=== PATIENT | female | born 1955 | race Caucasian/White ===

== ENCOUNTER 2020-01-21 11:20 | Observation (INO) ==
[2020-01-21] MEDS ORDERED: Ipratropium/Albuterol Neb 3 ML IH ONE (11:34)
[2020-01-21] MEDS ORDERED: Dexamethasone 4 MG/ML VIAL IVP ONE (11:37)
[2020-01-21 11:52] LABS: Basophils # 0.1 K/mcL (0.0-0.2); Basophils % 0.7 %; Eosinophils # 1.5 K/mcL (0.0-0.6); Eosinophils % 11.2 %; Hematocrit 43.2 % (35.3-44.9); Hemoglobin 12.7 g/dL (11.5-15.4); Immature Granulocytes % 0.5 % (0-4); Lymphocytes # 3.8 K/mcL (0.6-4.6); Lymphocytes % 29.5 %; Mean Corpuscular HGB Conc 29.4 g/dL (31.6-35.5); Mean Platelet Volume 9.1 fL (9.4-12.4); Monocytes # 0.8 K/mcL (0.0-1.3); Monocytes % 6.1 %; Neutrophils # 6.8 K/mcL (1.6-8.9); Platelet Count 310 K/mcL (140-400); Red Blood Count 5.08 M/mcL (3.82-4.97); Red Cell Distribution Width 15.9 % (11.5-14.5)
[2020-01-21 12:15] LABS: BUN/Creatinine Ratio 13 (6-26); Blood Urea Nitrogen 10 mg/dL (8-23); Calcium 9.2 mg/dL (8.6-10.3); Carbon Dioxide 30 mEq/L (23-29); Chloride 100 mEq/L (98-107); Glucose 128 mg/dL (70-105); Osmolality,Calculated 285 (280-300); Potassium 3.9 mEq/L (3.5-5.1); Sodium 137 mEq/L (136-145); Troponin I < 0.03 ng/mL (< 0.04); eGFR For African Americans > 60 (> 60); eGFR For Non-African Americans > 60 (> 60)
[2020-01-21] MEDS ORDERED: cefTRIAXone 1,000 MG in Water for inj. (sterile) 10 ML IVP ONE (12:15)
[2020-01-21] MEDS ORDERED: Azithromycin 500 MG in D5% in Water 250 ML IVPB ONE (12:15)
[2020-01-21] MEDS ORDERED: Ipratropium/Albuterol Neb 3 ML IH PRN (14:06)
[2020-01-21] MEDS: Ipratropium/Albuterol Neb 3 ML IH SCH ×2 (15:15→22:49)
[2020-01-21] MEDS: MethylPREDNISolone 40 MG/ML VIAL IVP SCH ×2 (16:10→23:35)
[2020-01-21] MEDS: Insulin LISPRO 300 UNITS/3 ML VIAL SQ SCH ×2 (16:11→21:01)
[2020-01-21] MEDS: Metoprolol XL (24 HR) Succ 25 MG TAB.ER.24H PO SCH (16:11)
[2020-01-21] MEDS: *HR* Heparin 5,000 UNIT/ML VIAL SQ SCH (21:02)
[2020-01-22] MEDS: Ipratropium/Albuterol Neb 3 ML IH SCH ×4 (03:51→21:52)
[2020-01-22] MEDS: *HR* Heparin 5,000 UNIT/ML VIAL SQ SCH ×3 (05:03→20:22)
[2020-01-22 05:28] LABS: Basophils % 0.2 %; Eosinophils % 0.1 %; Hematocrit 41.7 % (35.3-44.9); Hemoglobin 12.4 g/dL (11.5-15.4); Immature Granulocytes % 1.4 % (0-4); Lymphocytes # 1.6 K/mcL (0.6-4.6); Lymphocytes % 10.7 %; Mean Corpuscular HGB Conc 29.7 g/dL (31.6-35.5); Mean Corpuscular Hemoglobin 25.3 pg (28.0-33.3); Mean Corpuscular Volume 84.9 fL (83.0-100.0); Mean Platelet Volume 9.5 fL (9.4-12.4); Monocytes # 0.1 K/mcL (0.0-1.3); Monocytes % 0.7 %; Neutrophils # 12.8 K/mcL (1.6-8.9); Platelet Count 315 K/mcL (140-400); Red Blood Count 4.91 M/mcL (3.82-4.97); Red Cell Distribution Width 15.9 % (11.5-14.5); Segmented Neutrophils % 86.9 %; White Blood Count 14.7 K/mcL (4.3-11.1)
[2020-01-22 05:45] LABS: BUN/Creatinine Ratio 19 (6-26); Blood Urea Nitrogen 18 mg/dL (8-23); Carbon Dioxide 26 mEq/L (23-29); Chloride 98 mEq/L (98-107); Glucose 317 mg/dL (70-105); Osmolality,Calculated 294 (280-300); Sodium 135 mEq/L (136-145); eGFR For African Americans > 60 (> 60); eGFR For Non-African Americans 58 (> 60)
[2020-01-22 06:26] LABS: Adenovirus Not Detected (Not Detect); Bordetella Pertussis Not Detected (Not Detect); Chlamydophila pneumoniae Not Detected (Not Detect); Coronavirus 229E Not Detected (Not Detect); Coronavirus HKU1 Not Detected (Not Detect); Coronavirus NL63 Not Detected (Not Detect); Coronavirus OC43 Not Detected (Not Detect); Human Metapneumovirus Not Detected (Not Detect); Human Rhinovirus/Enterovirus Not Detected (Not Detect); Influenza A Subtype 2009 H1 Not Detected (Not Detect); Influenza B Not Detected (Not Detect); Mycoplasma pneumoniae Not Detected (Not Detect); Parainfluenza Virus 1 Not Detected (Not Detect); Parainfluenza Virus 2 Not Detected (Not Detect); Parainfluenza Virus 3 Not Detected (Not Detect); Parainfluenza Virus 4 Not Detected (Not Detect); Respiratory Syncytial Virus Not Detected (Not Detect)
[2020-01-22] MEDS: Metoprolol XL (24 HR) Succ 25 MG TAB.ER.24H PO SCH (08:33)
[2020-01-22] MEDS: Insulin LISPRO 300 UNITS/3 ML VIAL SQ SCH ×4 (08:33→20:21)
[2020-01-22] MEDS: MethylPREDNISolone 40 MG/ML VIAL IVP SCH ×3 (08:34→23:57)
[2020-01-22] MEDS: lisinopriL 10 MG TABLET PO SCH (08:34)
[2020-01-22] MEDS: cefTRIAXone 1,000 MG in Water for inj. (sterile) 10 ML IVP SCH (08:34)
[2020-01-22] MEDS: Isosorbide MONOnitrate (24 HR) 60 MG TAB.ER.24H PO SCH (08:34)
[2020-01-22] MEDS: hydroCHLOROthiazide 25 MG TABLET PO SCH (08:34)
[2020-01-22] MEDS: Aspirin 325 MG TABLET PO SCH (08:34)
[2020-01-22] MEDS: Azithromycin 500 MG in D5% in Water 250 ML IVPB SCH (08:35)
[2020-01-22 11:20] LABS: Estimated Average Glucose 171 mg/dl
[2020-01-22] MEDS ORDERED: Methyl Salicylate/Menthol 57 APPL/57 GM TUBE TP PRN (18:05)
[2020-01-23] MEDS: Ipratropium/Albuterol Neb 3 ML IH SCH ×4 (04:09→22:05)
[2020-01-23] MEDS: *HR* Heparin 5,000 UNIT/ML VIAL SQ SCH ×3 (06:30→19:48)
[2020-01-23] MEDS: MethylPREDNISolone 40 MG/ML VIAL IVP SCH ×2 (08:56→17:17)
[2020-01-23] MEDS: Insulin LISPRO 300 UNITS/3 ML VIAL SQ SCH ×4 (08:56→19:48)
[2020-01-23] MEDS: Metoprolol XL (24 HR) Succ 25 MG TAB.ER.24H PO SCH (08:57)
[2020-01-23] MEDS: lisinopriL 10 MG TABLET PO SCH (08:57)
[2020-01-23] MEDS: hydroCHLOROthiazide 25 MG TABLET PO SCH (08:57)
[2020-01-23] MEDS: Isosorbide MONOnitrate (24 HR) 60 MG TAB.ER.24H PO SCH (08:57)
[2020-01-23] MEDS: cefTRIAXone 1,000 MG in Water for inj. (sterile) 10 ML IVP SCH (08:58)
[2020-01-23] MEDS: Azithromycin 500 MG in D5% in Water 250 ML IVPB SCH (08:58)
[2020-01-23] MEDS: Aspirin 325 MG TABLET PO SCH (08:58)
[2020-01-24] MEDS: MethylPREDNISolone 40 MG/ML VIAL IVP SCH ×2 (00:02→09:43)
[2020-01-24] MEDS: Ipratropium/Albuterol Neb 3 ML IH SCH ×3 (03:16→15:41)
[2020-01-24] MEDS: *HR* Heparin 5,000 UNIT/ML VIAL SQ SCH (06:18)
[2020-01-24] MEDS: Azithromycin 500 MG in D5% in Water 250 ML IVPB SCH (09:41)
[2020-01-24] MEDS: Aspirin 325 MG TABLET PO SCH (09:42)
[2020-01-24] MEDS: Insulin LISPRO 300 UNITS/3 ML VIAL SQ SCH ×2 (09:42→12:14)
[2020-01-24] MEDS: hydroCHLOROthiazide 25 MG TABLET PO SCH (09:42)
[2020-01-24] MEDS: cefTRIAXone 1,000 MG in Water for inj. (sterile) 10 ML IVP SCH (09:43)
[2020-01-24] MEDS: lisinopriL 10 MG TABLET PO SCH (09:43)
[2020-01-24] MEDS: Isosorbide MONOnitrate (24 HR) 60 MG TAB.ER.24H PO SCH (09:43)
[2020-01-24] MEDS: Metoprolol XL (24 HR) Succ 25 MG TAB.ER.24H PO SCH (09:43)
[2020-01-24 10:39] VITALS: BP 130/67
[2020-01-24] MEDS ORDERED: Insulin LISPRO 300 UNITS/3 ML VIAL SQ ONE (11:11)
== END 2020-01-24 16:12 | disposition home or self-care (01) ==
LOC: EMEROOARM 11:20 → 3BNU 11:20 → SUATTDRO 14:04 → 3BNU 15:01
PROVIDERS: ADMIT Internal Medicine; ATTEND Internal Medicine

== ENCOUNTER 2020-03-22 09:48 | Observation (INO) ==
[2020-03-22] MEDS ORDERED: Ipratropium/Albuterol Neb 3 ML IH ONE (10:28)
[2020-03-22] MEDS ORDERED: methylPREDNISolone 125 MG/2 ML VIAL IVP ONE (10:29)
[2020-03-22 10:36] LABS: Hematocrit 39.5 % (35.3-44.9); Hemoglobin 11.8 g/dL (11.5-15.4); Mean Corpuscular HGB Conc 29.9 g/dL (31.6-35.5); Mean Corpuscular Hemoglobin 24.9 pg (28.0-33.3); Mean Corpuscular Volume 83.5 fL (83.0-100.0); Mean Platelet Volume 9.4 fL (9.4-12.4); Platelet Count 311 K/mcL (140-400); Red Blood Count 4.73 M/mcL (3.82-4.97); Red Cell Distribution Width 17.3 % (11.5-14.5); White Blood Count 12.7 K/mcL (4.3-11.1)
[2020-03-22 10:54] LABS: Eosinophils # 1.5 K/mcL (0.0-0.6); Lymphocytes # 2.3 K/mcL (0.6-4.6); Neutrophils # 7.9 K/mcL (1.6-8.9)
[2020-03-22 10:55] LABS: Anisocytosis 1+ (Not Present); Platelet Estimate Normal (Normal)
[2020-03-22 10:58] LABS: BUN/Creatinine Ratio 9 (6-26); Blood Urea Nitrogen 7 mg/dL (8-23); Calcium 9.1 mg/dL (8.6-10.3); Carbon Dioxide 28 mEq/L (23-29); Chloride 97 mEq/L (98-107); Glucose 191 mg/dL (70-105); Osmolality,Calculated 283 (280-300); Sodium 135 mEq/L (136-145); Troponin I < 0.03 ng/mL (< 0.04); eGFR For African Americans > 60 (> 60); eGFR For Non-African Americans > 60 (> 60)
[2020-03-22] MEDS ORDERED: 0.9 % Sodium Chloride 1,000 ML IVC ONE (13:36)
[2020-03-22] MEDS ORDERED: cefTRIAXone 1,000 MG in Water for inj. (sterile) 10 ML IVP ONE (13:49)
[2020-03-22] MEDS ORDERED: Azithromycin 500 MG in 0.9 % Sodium Chloride 250 ML IVPB ONE (13:49)
[2020-03-22 14:20] LABS: Bilirubin,Urine Negative (Negative); Blood,Urine Negative (Negative); Clarity,Urine Clear (Clear); Color,Urine Yellow (Yellow); Glucose,Urine (UA) Normal (Normal); Ketones,Urine Negative (Negative); Leukocyte Esterase,Urine Negative (Negative); Nitrite,Urine Negative (Negative); Protein,Urine Negative (Neg-Trace); Specific Gravity,Urine 1.012 (1.010-1.025); Urobilinogen,Urine Normal (Normal)
[2020-03-22] MEDS ORDERED: Ondansetron 4 MG/2 ML VIAL IVP PRN (15:25)
[2020-03-22] MEDS ORDERED: Naloxone 0.4 MG/ML INJ IVP PRN (15:25)
[2020-03-22] MEDS ORDERED: *HR* Dextrose 50 % in Water (Syg) 50 ML SYRINGE IVP PRN (20:03)
[2020-03-22] MEDS ORDERED: Dextrose Gel 15 GM/37.5 ML TUBE PO PRN ×2 (20:03)
[2020-03-22] MEDS ORDERED: D5% in Water 1,000 ML IVC PRN (20:03)
[2020-03-22] MEDS: Insulin LISPRO 300 UNITS/3 ML VIAL SQ SCH (21:24)
[2020-03-22 21:47] LABS: ABG Base Excess 0 mEq/L (-2 to 3); ABG HCO3 26 mEq/L (21-27); ABG Oxygen Saturation 90 % (95-98); ABG PCO2 47 mmHg (35-45); ABG PH 7.36 pH Units (7.32-7.45); ABG PO2 61 mmHg (85-104); ABG TCO2 28 mEq/L (20-26)
[2020-03-22] MEDS: Ringers Solution, Lactated 1,000 ML IVC SCH (21:50)
[2020-03-22] MEDS: Levalbuterol 1 PUFF INHALER IH SCH (23:16)
[2020-03-23 00:55] LABS: Basophils % 0.2 %; Eosinophils % 0.1 %; Hematocrit 36.8 % (35.3-44.9); Hemoglobin 11.2 g/dL (11.5-15.4); Immature Granulocytes % 1.4 % (0-4); Lymphocytes # 1.5 K/mcL (0.6-4.6); Lymphocytes % 10.3 %; Mean Corpuscular HGB Conc 30.4 g/dL (31.6-35.5); Mean Corpuscular Hemoglobin 24.8 pg (28.0-33.3); Mean Corpuscular Volume 81.4 fL (83.0-100.0); Mean Platelet Volume 9.8 fL (9.4-12.4); Monocytes # 0.1 K/mcL (0.0-1.3); Neutrophils # 12.6 K/mcL (1.6-8.9); Platelet Count 301 K/mcL (140-400); Red Blood Count 4.52 M/mcL (3.82-4.97); Red Cell Distribution Width 17.2 % (11.5-14.5); White Blood Count 14.5 K/mcL (4.3-11.1)
[2020-03-23 00:59] LABS: Estimated Average Glucose 189 mg/dl
[2020-03-23 01:14] LABS: BUN/Creatinine Ratio 17 (6-26); Blood Urea Nitrogen 12 mg/dL (8-23); Calcium 8.7 mg/dL (8.6-10.3); Carbon Dioxide 25 mEq/L (23-29); Chloride 98 mEq/L (98-107); Glucose 280 mg/dL (70-105); Osmolality,Calculated 286 (280-300); Potassium 4.1 mEq/L (3.5-5.1); Sodium 133 mEq/L (136-145); eGFR For African Americans > 60 (> 60); eGFR For Non-African Americans > 60 (> 60)
[2020-03-23 01:27] LABS: Thyroid Stimulating Hormone 0.311 mcIU/mL (0.340-5.600)
[2020-03-23] MEDS: Acetaminophen 325 MG TABLET PO PRN (02:06)
[2020-03-23] MEDS: Levalbuterol 1 PUFF INHALER IH SCH ×6 (03:58→23:28)
[2020-03-23] MEDS: *HR* Enoxaparin 40 MG/0.4 ML SYRINGE SQ SCH (05:51)
[2020-03-23] MEDS ORDERED: cefTRIAXone 1,000 MG in 0.9 % Sodium Chloride Mini Bag 100 ML IVPB SCH (09:00)
[2020-03-23 09:16] LABS: ABG Base Excess 3 mEq/L (-2 to 3); ABG HCO3 29 mEq/L (21-27); ABG Oxygen Saturation 95 % (95-98); ABG PCO2 45 mmHg (35-45); ABG PH 7.41 pH Units (7.32-7.45); ABG PO2 75 mmHg (85-104); ABG TCO2 30 mEq/L (20-26)
[2020-03-23] MEDS: Insulin LISPRO 300 UNITS/3 ML VIAL SQ SCH ×4 (10:15→22:17)
[2020-03-23 10:51] LABS: Triiodothyronine (T3) Free 2.93 pg/mL (2.50-3.90)
[2020-03-23] MEDS ORDERED: Azithromycin 500 MG in 0.9 % Sodium Chloride 250 ML IVPB SCH (14:00)
[2020-03-23] MEDS ORDERED: cefTRIAXone 1,000 MG in 0.9 % Sodium Chloride Mini Bag 100 ML IVPB ONE (14:35)
[2020-03-23] MEDS ORDERED: Vancomycin 1,750 MG/517.5 ML IV.SOLN IVPB ONE (14:53)
[2020-03-23] MEDS: Chlorhexidine Rinse 15 ML MOUTHWASH MM SCH (21:15)
[2020-03-23] MEDS: Ringers Solution, Lactated 1,000 ML IVC SCH (21:15)
[2020-03-23] MEDS: Lactobacillus 1 EACH CAP.SPRINK PO SCH (21:15)
[2020-03-24] MEDS: Vancomycin 1,500 MG/265 ML IV.SOLN IVPB SCH ×2 (03:37→15:01)
[2020-03-24] MEDS: Levalbuterol 1 PUFF INHALER IH SCH ×6 (04:05→23:41)
[2020-03-24 04:37] LABS: Basophils # 0.1 K/mcL (0.0-0.2); Basophils % 0.4 %; Eosinophils # 0.1 K/mcL (0.0-0.6); Eosinophils % 0.7 %; Hematocrit 35.7 % (35.3-44.9); Hemoglobin 10.6 g/dL (11.5-15.4); Immature Granulocytes % 0.9 % (0-4); Lymphocytes # 3.7 K/mcL (0.6-4.6); Lymphocytes % 21.8 %; Mean Corpuscular HGB Conc 29.7 g/dL (31.6-35.5); Mean Corpuscular Hemoglobin 24.8 pg (28.0-33.3); Mean Corpuscular Volume 83.6 fL (83.0-100.0); Mean Platelet Volume 9.7 fL (9.4-12.4); Monocytes % 6.1 %; Neutrophils # 12.1 K/mcL (1.6-8.9); Platelet Count 292 K/mcL (140-400); Red Blood Count 4.27 M/mcL (3.82-4.97); Red Cell Distribution Width 17.6 % (11.5-14.5); Segmented Neutrophils % 70.1 %; White Blood Count 17.2 K/mcL (4.3-11.1)
[2020-03-24 04:51] LABS: BUN/Creatinine Ratio 29 (6-26); Blood Urea Nitrogen 19 mg/dL (8-23); Calcium 8.5 mg/dL (8.6-10.3); Carbon Dioxide 26 mEq/L (23-29); Chloride 104 mEq/L (98-107); Glucose 141 mg/dL (70-105); Osmolality,Calculated 293 (280-300); Potassium 3.8 mEq/L (3.5-5.1); Sodium 139 mEq/L (136-145); eGFR For African Americans > 60 (> 60); eGFR For Non-African Americans > 60 (> 60)
[2020-03-24] MEDS ORDERED: Metoprolol XL (24 HR) Succ 25 MG TAB.ER.24H PO SCH (09:00)
[2020-03-24] MEDS: Ringers Solution, Lactated 1,000 ML IVC SCH (09:00)
[2020-03-24] MEDS ORDERED: lisinopriL 10 MG TABLET PO SCH (09:00)
[2020-03-24] MEDS ORDERED: cefTRIAXone 2,000 MG in 0.9 % Sodium Chloride Mini Bag 100 ML IVPB SCH (09:00)
[2020-03-24] MEDS: Loratadine 10 MG TABLET PO SCH (09:01)
[2020-03-24] MEDS: Nicotine 14 MG PATCH.TD24 TD SCH (09:01)
[2020-03-24] MEDS: *HR* Enoxaparin 40 MG/0.4 ML SYRINGE SQ SCH (09:01)
[2020-03-24] MEDS: Ascorbic Acid 500 MG TABLET PO SCH (09:01)
[2020-03-24] MEDS: Aspirin Enteric Coated 81 MG Tablet PO SCH (09:01)
[2020-03-24] MEDS: amLODIPine 5 MG TABLET PO SCH (09:01)
[2020-03-24] MEDS: Chlorhexidine Rinse 15 ML MOUTHWASH MM SCH ×2 (09:01→21:00)
[2020-03-24] MEDS: Metoprolol XL (24 HR) Succ 25 MG TAB.ER.24H PO SCH (09:01)
[2020-03-24] MEDS: Lactobacillus 1 EACH CAP.SPRINK PO SCH ×2 (09:01→21:00)
[2020-03-24] MEDS: Isosorbide MONOnitrate (24 HR) 60 MG TAB.ER.24H PO SCH (09:01)
[2020-03-24] MEDS: Insulin LISPRO 300 UNITS/3 ML VIAL SQ SCH ×4 (09:02→20:59)
[2020-03-24] MEDS: Fluticasone Propionate Nasal 50 MCG/SPRAY BOTTLE NS SCH (09:02)
[2020-03-24] MEDS: Insulin DETEMIR 100 UNIT/ML X5UNITS SQ SCH (09:03)
[2020-03-24] MEDS: Piperacillin/Tazobactam 3.375 GM in 0.9 % Sodium Chloride Mini Bag 100 ML IVPB SCH ×3 (10:01→23:53)
[2020-03-24] MEDS: Acetaminophen 325 MG TABLET PO PRN (21:04)
[2020-03-25 02:22] LABS: Basophils # 0.1 K/mcL (0.0-0.2); Basophils % 0.5 %; Eosinophils # 0.8 K/mcL (0.0-0.6); Eosinophils % 7.6 %; Hematocrit 33.5 % (35.3-44.9); Immature Granulocytes % 0.7 % (0-4); Lymphocytes # 2.6 K/mcL (0.6-4.6); Lymphocytes % 23.5 %; Mean Corpuscular HGB Conc 29.9 g/dL (31.6-35.5); Mean Corpuscular Hemoglobin 24.9 pg (28.0-33.3); Mean Corpuscular Volume 83.5 fL (83.0-100.0); Mean Platelet Volume 9.6 fL (9.4-12.4); Monocytes # 0.7 K/mcL (0.0-1.3); Monocytes % 6.1 %; Neutrophils # 6.8 K/mcL (1.6-8.9); Platelet Count 249 K/mcL (140-400); Red Blood Count 4.01 M/mcL (3.82-4.97); Red Cell Distribution Width 17.7 % (11.5-14.5); Segmented Neutrophils % 61.6 %
[2020-03-25 02:32] LABS: BUN/Creatinine Ratio 23 (6-26); Blood Urea Nitrogen 16 mg/dL (8-23); Calcium 8.3 mg/dL (8.6-10.3); Carbon Dioxide 28 mEq/L (23-29); Chloride 107 mEq/L (98-107); Glucose 127 mg/dL (70-105); Osmolality,Calculated 293 (280-300); Sodium 140 mEq/L (136-145); eGFR For African Americans > 60 (> 60); eGFR For Non-African Americans > 60 (> 60)
[2020-03-25] MEDS: Levalbuterol 1 PUFF INHALER IH SCH ×3 (03:34→11:11)
[2020-03-25] MEDS: Vancomycin 1,500 MG/265 ML IV.SOLN IVPB SCH (04:10)
[2020-03-25] MEDS: *HR* Enoxaparin 40 MG/0.4 ML SYRINGE SQ SCH (06:02)
[2020-03-25] MEDS: Acetaminophen 325 MG TABLET PO PRN (06:03)
[2020-03-25 06:34] VITALS: BP 142/87
[2020-03-25] MEDS: Insulin LISPRO 300 UNITS/3 ML VIAL SQ SCH (07:56)
[2020-03-25] MEDS: Chlorhexidine Rinse 15 ML MOUTHWASH MM SCH (07:57)
[2020-03-25] MEDS: Fluticasone Propionate Nasal 50 MCG/SPRAY BOTTLE NS SCH (07:57)
[2020-03-25] MEDS: Isosorbide MONOnitrate (24 HR) 60 MG TAB.ER.24H PO SCH (07:58)
[2020-03-25] MEDS: Metoprolol XL (24 HR) Succ 25 MG TAB.ER.24H PO SCH (07:58)
[2020-03-25] MEDS: Nicotine 14 MG PATCH.TD24 TD SCH (07:58)
[2020-03-25] MEDS: Aspirin Enteric Coated 81 MG Tablet PO SCH (07:58)
[2020-03-25] MEDS: Ascorbic Acid 500 MG TABLET PO SCH (07:58)
[2020-03-25] MEDS: Lactobacillus 1 EACH CAP.SPRINK PO SCH (07:59)
[2020-03-25] MEDS: Loratadine 10 MG TABLET PO SCH (07:59)
[2020-03-25] MEDS: amLODIPine 5 MG TABLET PO SCH (07:59)
[2020-03-25] MEDS: Insulin DETEMIR 100 UNIT/ML X5UNITS SQ SCH (08:10)
== END 2020-03-25 11:49 | disposition home or self-care (01) ==
LOC: 2NENU 09:48 → EMEROOARM 09:48 → SUATTDRO 14:57 → 2NENU 16:19 → 3ANU 03-23 20:17
PROVIDERS: ADMIT Family Medicine; ATTEND Family Medicine

== ENCOUNTER 2020-06-06 17:01 | Observation (INO) ==
[2020-06-06 18:21] LABS: Basophils # 0.1 K/mcL (0.0-0.2); Basophils % 0.6 %; Eosinophils # 1.9 K/mcL (0.0-0.6); Hematocrit 36.6 % (35.3-44.9); Hemoglobin 10.6 g/dL (11.5-15.4); Immature Granulocytes % 0.4 % (0-4); Lymphocytes # 3.3 K/mcL (0.6-4.6); Lymphocytes % 23.2 %; Mean Corpuscular Hemoglobin 23.1 pg (28.0-33.3); Mean Corpuscular Volume 79.7 fL (83.0-100.0); Mean Platelet Volume 9.6 fL (9.4-12.4); Monocytes # 0.9 K/mcL (0.0-1.3); Monocytes % 6.3 %; Neutrophils # 8.1 K/mcL (1.6-8.9); Platelet Count 377 K/mcL (140-400); Red Blood Count 4.59 M/mcL (3.82-4.97); Red Cell Distribution Width 16.9 % (11.5-14.5); Segmented Neutrophils % 56.5 %; White Blood Count 14.3 K/mcL (4.3-11.1)
[2020-06-06 18:23] LABS: BUN/Creatinine Ratio 8 (6-26); Blood Urea Nitrogen 5 mg/dL (8-23); Carbon Dioxide 29 mEq/L (23-29); Chloride 97 mEq/L (98-107); Glucose 105 mg/dL (70-105); Osmolality,Calculated 282 (280-300); Potassium 3.3 mEq/L (3.5-5.1); Sodium 137 mEq/L (136-145); Troponin I < 0.03 ng/mL (< 0.04); eGFR For African Americans > 60 (> 60); eGFR For Non-African Americans > 60 (> 60)
[2020-06-06] MEDS ORDERED: Ipratropium/Albuterol Neb 3 ML IH ONE ×2 (18:43→19:33)
[2020-06-06] MEDS ORDERED: predniSONE 20 MG TABLET PO ONE (18:43)
[2020-06-06 20:12] LABS: Alanine Aminotransferase 13 Units/L (7-52); Albumin 4.1 g/dL (3.5-5.7); Albumin/Globulin Ratio 1.5 (1.1-2.2); Alkaline Phosphatase 72 Units/L (34-104); Aspartate Amino Transferase 20 Units/L (13-39); Bilirubin,Indirect 0.3 mg/dL (0.0-1.0); Bilirubin,Total 0.3 mg/dL (0.3-1.0); Globulin 2.8 g/dL (2.4-3.5); Magnesium 1.8 mg/dL (1.6-2.6); Phosphorous 3.1 mg/dL (2.7-4.5); Total Protein 6.9 g/dL (6.4-8.9)
[2020-06-06] MEDS ORDERED: *HR* Dextrose 50 % in Water (Vial) 50 ML VIAL IVP PRN (20:54)
[2020-06-06] MEDS ORDERED: Dextrose Gel 15 GM/37.5 ML TUBE PO PRN ×2 (20:54)
[2020-06-06] MEDS ORDERED: Naloxone 0.4 MG/ML INJ IVP PRN (20:54)
[2020-06-06] MEDS ORDERED: D5% in Water 1,000 ML IVC PRN (20:54)
[2020-06-06] MEDS ORDERED: Fluticasone Propionate Nasal 50 MCG/SPRAY BOTTLE NS PRN (21:04)
[2020-06-06] MEDS ORDERED: Nitroglycerin 0.4 MG TAB.SUBL SL PRN (21:04)
[2020-06-06] MEDS: Nicotine 21 MG PATCH.TD24 TD SCH (21:32)
[2020-06-06] MEDS: Acetaminophen 325 MG TABLET PO PRN (21:32)
[2020-06-06] MEDS: Gabapentin 100 MG CAPSULE PO SCH (21:33)
[2020-06-06] MEDS: Insulin LISPRO 300 UNITS/3 ML VIAL SQ SCH (21:33)
[2020-06-06] MEDS: Budesonide/Formoterol 160/4.5 1 PUFF INH IH SCH (22:20)
[2020-06-06] MEDS: MethylPREDNISolone 40 MG/ML VIAL IVP SCH (23:00)
[2020-06-06] MEDS: Azithromycin 500 MG in 0.9 % Sodium Chloride 250 ML IVPB SCH (23:00)
[2020-06-06] MEDS: Insulin DETEMIR 100 UNIT/ML X5UNITS SQ SCH (23:00)
[2020-06-06] MEDS: Ipratropium/Albuterol Neb 3 ML IH SCH (23:43)
[2020-06-06] MEDS ORDERED: Ondansetron ODT 4 MG TAB.RAPDIS SL ONE (23:58)
[2020-06-07 03:56] LABS: Basophils # 0.1 K/mcL (0.0-0.2); Basophils % 0.4 %; Hemoglobin 10.8 g/dL (11.5-15.4); Monocytes % 0.5 %; White Blood Count 13.3 K/mcL (4.3-11.1)
[2020-06-07 03:57] LABS: Eosinophils % 0.3 %; Hematocrit 37.1 % (35.3-44.9); Immature Granulocytes % 1.5 % (0-4); Lymphocytes # 1.3 K/mcL (0.6-4.6); Lymphocytes % 9.7 %; Mean Corpuscular HGB Conc 29.1 g/dL (31.6-35.5); Mean Corpuscular Hemoglobin 23.4 pg (28.0-33.3); Mean Corpuscular Volume 80.5 fL (83.0-100.0); Mean Platelet Volume 9.2 fL (9.4-12.4); Monocytes # 0.1 K/mcL (0.0-1.3); Neutrophils # 11.7 K/mcL (1.6-8.9); Platelet Count 324 K/mcL (140-400); Red Blood Count 4.61 M/mcL (3.82-4.97); Red Cell Distribution Width 16.7 % (11.5-14.5); Segmented Neutrophils % 87.6 %
[2020-06-07 04:15] LABS: BUN/Creatinine Ratio 11 (6-26); Blood Urea Nitrogen 8 mg/dL (8-23); Calcium 8.8 mg/dL (8.6-10.3); Carbon Dioxide 31 mEq/L (23-29); Chloride 97 mEq/L (98-107); Glucose 183 mg/dL (70-105); Osmolality,Calculated 285 (280-300); Potassium 4.4 mEq/L (3.5-5.1); Sodium 136 mEq/L (136-145); eGFR For African Americans > 60 (> 60); eGFR For Non-African Americans > 60 (> 60)
[2020-06-07 04:23] LABS: Anisocytosis 1+ (Not Present); Microcytosis Present (Not Present); Platelet Estimate Normal (Normal)
[2020-06-07] MEDS: Ipratropium/Albuterol Neb 3 ML IH SCH ×6 (04:27→23:21)
[2020-06-07] MEDS: *HR* Enoxaparin 40 MG/0.4 ML SYRINGE SQ SCH (05:36)
[2020-06-07] MEDS: Budesonide/Formoterol 160/4.5 1 PUFF INH IH SCH ×2 (07:53→19:58)
[2020-06-07] MEDS: Insulin LISPRO 300 UNITS/3 ML VIAL SQ SCH ×4 (07:57→21:05)
[2020-06-07] MEDS: MethylPREDNISolone 40 MG/ML VIAL IVP SCH ×2 (07:57→16:47)
[2020-06-07] MEDS: Metoprolol XL (24 HR) Succ 25 MG TAB.ER.24H PO SCH (07:58)
[2020-06-07] MEDS: Aspirin Enteric Coated 81 MG Tablet PO SCH (07:58)
[2020-06-07] MEDS: Isosorbide MONOnitrate (24 HR) 60 MG TAB.ER.24H PO SCH (07:58)
[2020-06-07] MEDS: Gabapentin 100 MG CAPSULE PO SCH ×3 (07:58→21:03)
[2020-06-07] MEDS: Loratadine 10 MG TABLET PO SCH (07:58)
[2020-06-07] MEDS: lisinopriL 10 MG TABLET PO SCH (07:59)
[2020-06-07] MEDS: Acetaminophen 325 MG TABLET PO PRN ×2 (08:01→21:08)
[2020-06-07] MEDS ORDERED: GuaiFENesin Liq 200 MG/10 ML UDC PO PRN (09:56)
[2020-06-07] MEDS: Menthol 9.1 MG LOZENGE PO PRN (12:51)
[2020-06-07] MEDS: Nicotine 21 MG PATCH.TD24 TD SCH (21:04)
[2020-06-07] MEDS: Insulin DETEMIR 100 UNIT/ML X5UNITS SQ SCH (21:05)
[2020-06-08] MEDS: Menthol 9.1 MG LOZENGE PO PRN (00:11)
[2020-06-08] MEDS: Azithromycin 500 MG in 0.9 % Sodium Chloride 250 ML IVPB SCH (00:42)
[2020-06-08] MEDS: Ipratropium/Albuterol Neb 3 ML IH SCH ×5 (03:46→19:47)
[2020-06-08] MEDS: *HR* Enoxaparin 40 MG/0.4 ML SYRINGE SQ SCH (05:26)
[2020-06-08] MEDS: Budesonide/Formoterol 160/4.5 1 PUFF INH IH SCH ×2 (07:44→19:47)
[2020-06-08] MEDS: Azithromycin 250 MG TABLET PO SCH (09:13)
[2020-06-08] MEDS: Loratadine 10 MG TABLET PO SCH (09:13)
[2020-06-08] MEDS: Gabapentin 100 MG CAPSULE PO SCH ×3 (09:13→20:37)
[2020-06-08] MEDS: lisinopriL 10 MG TABLET PO SCH (09:13)
[2020-06-08] MEDS: predniSONE 20 MG TABLET PO SCH (09:13)
[2020-06-08] MEDS: Aspirin Enteric Coated 81 MG Tablet PO SCH (09:13)
[2020-06-08] MEDS: Metoprolol XL (24 HR) Succ 25 MG TAB.ER.24H PO SCH (09:14)
[2020-06-08] MEDS: Isosorbide MONOnitrate (24 HR) 60 MG TAB.ER.24H PO SCH (09:14)
[2020-06-08] MEDS: Acetaminophen 325 MG TABLET PO PRN ×2 (09:17→20:39)
[2020-06-08] MEDS: Insulin LISPRO 300 UNITS/3 ML VIAL SQ SCH ×4 (09:18→20:39)
[2020-06-08] MEDS: Insulin DETEMIR 100 UNIT/ML X5UNITS SQ SCH (20:37)
[2020-06-08] MEDS: Nicotine 21 MG PATCH.TD24 TD SCH (20:37)
[2020-06-09] MEDS: Ipratropium/Albuterol Neb 3 ML IH SCH ×3 (00:01→07:24)
[2020-06-09 03:39] LABS: Hemoglobin 9.3 g/dL (11.5-15.4); Platelet Count 352 K/mcL (140-400)
[2020-06-09 03:40] LABS: Hematocrit 33.1 % (35.3-44.9); Mean Corpuscular HGB Conc 28.1 g/dL (31.6-35.5); Mean Corpuscular Hemoglobin 22.5 pg (28.0-33.3); Mean Platelet Volume 9.4 fL (9.4-12.4); Red Blood Count 4.14 M/mcL (3.82-4.97); Red Cell Distribution Width 16.9 % (11.5-14.5); White Blood Count 18.4 K/mcL (4.3-11.1)
[2020-06-09 03:59] LABS: BUN/Creatinine Ratio 32 (6-26); Blood Urea Nitrogen 23 mg/dL (8-23); Calcium 8.7 mg/dL (8.6-10.3); Carbon Dioxide 29 mEq/L (23-29); Chloride 100 mEq/L (98-107); Glucose 229 mg/dL (70-105); Osmolality,Calculated 295 (280-300); Sodium 137 mEq/L (136-145); eGFR For African Americans > 60 (> 60); eGFR For Non-African Americans > 60 (> 60)
[2020-06-09] MEDS: *HR* Enoxaparin 40 MG/0.4 ML SYRINGE SQ SCH (05:55)
[2020-06-09 06:32] VITALS: BP 112/69
[2020-06-09] MEDS: Budesonide/Formoterol 160/4.5 1 PUFF INH IH SCH (07:24)
[2020-06-09] MEDS: Loratadine 10 MG TABLET PO SCH (08:46)
[2020-06-09] MEDS: lisinopriL 10 MG TABLET PO SCH (08:46)
[2020-06-09] MEDS: Insulin LISPRO 300 UNITS/3 ML VIAL SQ SCH (08:46)
[2020-06-09] MEDS: Isosorbide MONOnitrate (24 HR) 60 MG TAB.ER.24H PO SCH (08:46)
[2020-06-09] MEDS: predniSONE 20 MG TABLET PO SCH (08:46)
[2020-06-09] MEDS: Aspirin Enteric Coated 81 MG Tablet PO SCH (08:46)
[2020-06-09] MEDS: Azithromycin 250 MG TABLET PO SCH (08:47)
[2020-06-09] MEDS: Gabapentin 100 MG CAPSULE PO SCH (08:47)
[2020-06-09] MEDS: Metoprolol XL (24 HR) Succ 25 MG TAB.ER.24H PO SCH (08:47)
== END 2020-06-09 10:43 | disposition home or self-care (01) ==
LOC: EMEROOARM 17:01 → 3BNU 17:01
PROVIDERS: ADMIT Internal Medicine; ATTEND Internal Medicine

== ENCOUNTER 2020-08-09 12:35 | Inpatient (IN) ==
[2020-08-09] MEDS ORDERED: 0.9 % Sodium Chloride 1,000 ML IVC ONE ×2 (12:57→14:11)
[2020-08-09] MEDS ORDERED: Ondansetron 4 MG/2 ML VIAL IVP ONE (12:57)
[2020-08-09] MEDS ORDERED: *HR* FentaNYL (PF) 100 MCG/2 ML VIAL IVP ONE (13:09)
[2020-08-09 13:31] LABS: Basophils % 0.3 %; Hemoglobin 13.4 g/dL (11.5-15.4); Mean Platelet Volume 9.5 fL (9.4-12.4); Monocytes % 3.9 %; Red Cell Distribution Width 18.6 % (11.5-14.5)
[2020-08-09 13:32] LABS: Basophils # 0.1 K/mcL (0.0-0.2); Eosinophils % 18.3 %; Hematocrit 45.4 % (35.3-44.9); Immature Granulocytes % 0.9 % (0-4); Lymphocytes % 14.6 %; Mean Corpuscular HGB Conc 29.5 g/dL (31.6-35.5); Mean Corpuscular Volume 74.7 fL (83.0-100.0); Monocytes # 1.1 K/mcL (0.0-1.3); Neutrophils # 16.9 K/mcL (1.6-8.9); Platelet Count 428 K/mcL (140-400); Red Blood Count 6.08 M/mcL (3.82-4.97); White Blood Count 27.3 K/mcL (4.3-11.1)
[2020-08-09 13:37] LABS: INR 1.3; Prothrombin Time 14.2 Seconds (9.4-12.1)
[2020-08-09 13:39] LABS: Activated Partial Thrombo Time 35.5 Seconds (26.0-36.0)
[2020-08-09 13:52] LABS: Alanine Aminotransferase 7 Units/L (7-52); Albumin 4.5 g/dL (3.5-5.7); Albumin/Globulin Ratio 1.4 (1.1-2.2); Alkaline Phosphatase 126 Units/L (34-104); Aspartate Amino Transferase 13 Units/L (13-39); BUN/Creatinine Ratio 13 (6-26); Bilirubin,Direct 0.1 mg/dL (0.0-0.2); Bilirubin,Indirect 0.2 mg/dL (0.0-1.0); Bilirubin,Total 0.3 mg/dL (0.3-1.0); Blood Urea Nitrogen 11 mg/dL (8-23); Calcium 9.8 mg/dL (8.6-10.3); Carbon Dioxide 26 mEq/L (23-29); Chloride 100 mEq/L (98-107); Globulin 3.2 g/dL (2.4-3.5); Glucose 142 mg/dL (70-105); Lipase 28 Units/L (11-82); Osmolality,Calculated 290 (280-300); Potassium 3.1 mEq/L (3.5-5.1); Sodium 139 mEq/L (136-145); Total Protein 7.7 g/dL (6.4-8.9); Troponin I < 0.03 ng/mL (< 0.04); eGFR For African Americans > 60 (> 60); eGFR For Non-African Americans > 60 (> 60)
[2020-08-09 13:57] LABS: Platelet Estimate Normal (Normal)
[2020-08-09] MEDS ORDERED: Piperacillin/Tazobactam 3.375 GM in Water for inj. (sterile) 20 ML IVP ONE (14:45)
[2020-08-09 15:11] LABS: Bilirubin,Urine Negative (Negative); Blood,Urine Negative (Negative); Clarity,Urine Clear (Clear); Color,Urine Yellow (Yellow); Glucose,Urine (UA) Normal (Normal); Hyaline Casts,Urine Few per lpf (None Seen); Ketones,Urine Negative (Negative); Leukocyte Esterase,Urine Negative (Negative); Mucus,Urine Many per lpf (None-Few); Nitrite,Urine Negative (Negative); PH,Urine 5.5 pH Units (5.0-8.0); Protein,Urine 50 mg/dL (Neg-Trace); RBC,Urine 0-3 per hpf (0-3); Specific Gravity,Urine 1.027 (1.010-1.025); Squamous Epithelial Cell,Urine Few per hpf (None-Few); Urobilinogen,Urine Normal (Normal); WBC,Urine 0-3 per hpf (0-3)
[2020-08-09] MEDS ORDERED: Acetaminophen 325 MG TABLET PO PRN (17:33)
[2020-08-09] MEDS ORDERED: Naloxone 0.4 MG/ML INJ IVP PRN (17:33)
[2020-08-09] MEDS ORDERED: 0.9 % Sodium Chloride 500 ML IVC SCH (17:45)
[2020-08-09] MEDS ORDERED: Nitroglycerin 0.4 MG TAB.SUBL SL PRN (18:56)
[2020-08-09 23:27] LABS: Campylobacter by PCR Not detected (Not detect)
[2020-08-09 23:28] LABS: Adenovirus F 40/41 PCR Not detected (Not detect); Astrovirus PCR Not detected (Not detect); C.difficile Toxin A/B Gene PCR Not detected (Not detect); Cryptosporidium by PCR Not detected (Not detect); Cyclospora cayetanensis PCR Not detected (Not detect); E. coli O157 by PCR Not detected (Not detect); Entamoeba histolytica PCR Not detected (Not detect); Enteroaggregative E.coli(EAEC) Not detected (Not detect); Enteropathogenic E.coli(EPEC) Not detected (Not detect); Enterotoxigenic E.coli (ETEC) Not detected (Not detect); Giardia lamblia PCR Not detected (Not detect); Norovirus GI/GII PCR Not detected (Not detect); Plesiomonas shigelloides PCR Not detected (Not detect); Rotavirus A PCR Not detected (Not detect); Salmonella PCR Not detected (Not detect); Sapovirus PCR Not detected (Not detect); Shig/EnteroinvasiveE coli EIEC Not detected (Not detect); Shigalike tox-prod E coli STEC Not detected (Not detect); Vibrio PCR Not detected (Not detect); Vibrio cholerae PCR Not detected (Not detect); Yersinia enterocolitica PCR Not detected (Not detect)
[2020-08-10] MEDS: Piperacillin/Tazobactam 3.375 GM in 0.9 % Sodium Chloride Mini Bag 100 ML IVPB SCH ×4 (00:02→23:17)
[2020-08-10] MEDS ORDERED: Dextrose Gel 15 GM/37.5 ML TUBE PO PRN ×2 (05:25)
[2020-08-10] MEDS ORDERED: *HR* Dextrose 50 % in Water (Vial) 50 ML VIAL IVP PRN (05:25)
[2020-08-10] MEDS ORDERED: D5% in Water 1,000 ML IVC PRN (05:25)
[2020-08-10 05:47] LABS: INR 1.3; Prothrombin Time 14.4 Seconds (9.4-12.1)
[2020-08-10 05:49] LABS: Activated Partial Thrombo Time 30.6 Seconds (26.0-36.0)
[2020-08-10 05:55] LABS: Alanine Aminotransferase 5 Units/L (7-52); Albumin 3.3 g/dL (3.5-5.7); Albumin/Globulin Ratio 1.4 (1.1-2.2); Alkaline Phosphatase 95 Units/L (34-104); Aspartate Amino Transferase 10 Units/L (13-39); BUN/Creatinine Ratio 12 (6-26); Bilirubin,Total 0.3 mg/dL (0.3-1.0); Blood Urea Nitrogen 9 mg/dL (8-23); Calcium 8.1 mg/dL (8.6-10.3); Carbon Dioxide 24 mEq/L (23-29); Chloride 106 mEq/L (98-107); Globulin 2.4 g/dL (2.4-3.5); Glucose 114 mg/dL (70-105); Magnesium 1.5 mg/dL (1.6-2.6); Osmolality,Calculated 288 (280-300); Phosphorous 3.6 mg/dL (2.7-4.5); Potassium 3.3 mEq/L (3.5-5.1); Sodium 139 mEq/L (136-145); Total Protein 5.7 g/dL (6.4-8.9); eGFR For African Americans > 60 (> 60); eGFR For Non-African Americans > 60 (> 60)
[2020-08-10 05:56] LABS: Basophils % 0.3 %; Lymphocytes % 14.3 %
[2020-08-10 05:58] LABS: Basophils # 0.1 K/mcL (0.0-0.2); Eosinophils # 8.1 K/mcL (0.0-0.6); Hematocrit 36.5 % (35.3-44.9); Hemoglobin 10.4 g/dL (11.5-15.4); Immature Granulocytes % 0.8 % (0-4); Lymphocytes # 3.6 K/mcL (0.6-4.6); Mean Corpuscular HGB Conc 28.5 g/dL (31.6-35.5); Mean Corpuscular Hemoglobin 21.6 pg (28.0-33.3); Mean Corpuscular Volume 75.9 fL (83.0-100.0); Mean Platelet Volume 9.9 fL (9.4-12.4); Monocytes # 1.1 K/mcL (0.0-1.3); Monocytes % 4.4 %; Neutrophils # 12.2 K/mcL (1.6-8.9); Platelet Count 315 K/mcL (140-400); Red Blood Count 4.81 M/mcL (3.82-4.97); Red Cell Distribution Width 17.4 % (11.5-14.5); Segmented Neutrophils % 48.2 %; White Blood Count 25.3 K/mcL (4.3-11.1)
[2020-08-10 07:17] LABS: Platelet Estimate Normal (Normal)
[2020-08-10] MEDS ORDERED: Ipratropium/Albuterol Neb 3 ML IH PRN (07:32)
[2020-08-10] MEDS ORDERED: Fluticasone Propionate Nasal 50 MCG/SPRAY BOTTLE NS PRN (07:32)
[2020-08-10] MEDS ORDERED: Nitroglycerin 0.4 MG TAB.SUBL SL PRN (07:32)
[2020-08-10] MEDS: Insulin LISPRO 300 UNITS/3 ML VIAL SQ SCH ×4 (08:31→21:34)
[2020-08-10] MEDS: Isosorbide MONOnitrate (24 HR) 60 MG TAB.ER.24H PO SCH (08:32)
[2020-08-10] MEDS: Loratadine 10 MG TABLET PO SCH (08:32)
[2020-08-10] MEDS: Metoprolol XL (24 HR) Succ 25 MG TAB.ER.24H PO SCH (08:32)
[2020-08-10] MEDS: Aspirin Enteric Coated 81 MG Tablet PO SCH (08:33)
[2020-08-10] MEDS: Gabapentin 100 MG CAPSULE PO SCH ×3 (08:33→21:35)
[2020-08-10] MEDS: lisinopriL 10 MG TABLET PO SCH (08:34)
[2020-08-10] MEDS: Nicotine 21 MG PATCH.TD24 TD SCH (08:35)
[2020-08-10] MEDS ORDERED: Isosorbide MONOnitrate (24 HR) 60 MG TAB.ER.24H PO SCH (09:00)
[2020-08-10] MEDS: Tiotropium 18 MCG inhalation IH SCH (11:07)
[2020-08-10] MEDS: Budesonide/Formoterol 160/4.5 1 PUFF INH IH SCH ×2 (11:08→20:12)
[2020-08-10] MEDS: Sucralfate 1 GM TABLET PO SCH (16:28)
[2020-08-11 05:14] LABS: Basophils % 0.3 %; Hemoglobin 10.4 g/dL (11.5-15.4); Immature Granulocytes % 0.6 % (0-4); Mean Platelet Volume 9.6 fL (9.4-12.4); Monocytes % 3.2 %
[2020-08-11 05:16] LABS: Basophils # 0.1 K/mcL (0.0-0.2); Eosinophils # 12.4 K/mcL (0.0-0.6); Eosinophils % 46.4 %; Hematocrit 36.8 % (35.3-44.9); Lymphocytes # 5.1 K/mcL (0.6-4.6); Mean Corpuscular HGB Conc 28.3 g/dL (31.6-35.5); Mean Corpuscular Hemoglobin 21.8 pg (28.0-33.3); Mean Corpuscular Volume 77.3 fL (83.0-100.0); Monocytes # 0.9 K/mcL (0.0-1.3); Platelet Count 313 K/mcL (140-400); Red Blood Count 4.76 M/mcL (3.82-4.97); Red Cell Distribution Width 17.7 % (11.5-14.5); Segmented Neutrophils % 30.5 %; White Blood Count 26.7 K/mcL (4.3-11.1)
[2020-08-11 05:19] LABS: Neutrophils # 8.1 K/mcL (1.6-8.9)
[2020-08-11 05:32] LABS: BUN/Creatinine Ratio 11 (6-26); Blood Urea Nitrogen 9 mg/dL (8-23); Calcium 8.6 mg/dL (8.6-10.3); Carbon Dioxide 26 mEq/L (23-29); Chloride 107 mEq/L (98-107); Glucose 106 mg/dL (70-105); Osmolality,Calculated 293 (280-300); Potassium 3.4 mEq/L (3.5-5.1); Sodium 142 mEq/L (136-145); eGFR For African Americans > 60 (> 60); eGFR For Non-African Americans > 60 (> 60)
[2020-08-11 05:36] LABS: Platelet Estimate Normal (Normal)
[2020-08-11 05:37] LABS: Anisocytosis 1+ (Not Present); Microcytosis Present (Not Present)
[2020-08-11 05:47] LABS: Thyroid Stimulating Hormone 0.632 mcIU/mL (0.340-5.600)
[2020-08-11] MEDS: Budesonide/Formoterol 160/4.5 1 PUFF INH IH SCH ×2 (07:23→19:50)
[2020-08-11] MEDS: Tiotropium 18 MCG inhalation IH SCH (07:23)
[2020-08-11] MEDS: Insulin LISPRO 300 UNITS/3 ML VIAL SQ SCH ×4 (08:47→19:49)
[2020-08-11] MEDS: Aspirin Enteric Coated 81 MG Tablet PO SCH (08:50)
[2020-08-11] MEDS: Nicotine 21 MG PATCH.TD24 TD SCH (08:50)
[2020-08-11] MEDS: Piperacillin/Tazobactam 3.375 GM in 0.9 % Sodium Chloride Mini Bag 100 ML IVPB SCH ×2 (08:50→14:28)
[2020-08-11] MEDS: Isosorbide MONOnitrate (24 HR) 60 MG TAB.ER.24H PO SCH (08:50)
[2020-08-11] MEDS: Sucralfate 1 GM TABLET PO SCH ×2 (08:50→15:17)
[2020-08-11] MEDS: Gabapentin 100 MG CAPSULE PO SCH ×3 (08:50→20:47)
[2020-08-11] MEDS: Metoprolol XL (24 HR) Succ 25 MG TAB.ER.24H PO SCH (08:50)
[2020-08-11] MEDS: lisinopriL 10 MG TABLET PO SCH (08:50)
[2020-08-11] MEDS: Loratadine 10 MG TABLET PO SCH (08:52)
[2020-08-11] MEDS: (Roflumilast [Daliresp] 500 MCG) PO SCH (08:54)
[2020-08-11] MEDS ORDERED: Iron Sucrose Complex 400 MG in 0.9 % Sodium Chloride 250 ML IVPB ONE (11:03)
[2020-08-11] MEDS: Cyanocobalamin (B-12) 1,000 MCG/ML VIAL SQ SCH (12:05)
[2020-08-11 18:55] LABS: Complement C3 174 mg/dL (87-200)
[2020-08-12 02:34] LABS: Hemoglobin 9.8 g/dL (11.5-15.4)
[2020-08-12 02:36] LABS: Hematocrit 33.5 % (35.3-44.9); Mean Corpuscular HGB Conc 29.3 g/dL (31.6-35.5); Mean Corpuscular Hemoglobin 22.6 pg (28.0-33.3); Mean Corpuscular Volume 77.4 fL (83.0-100.0); Mean Platelet Volume 9.5 fL (9.4-12.4); Platelet Count 301 K/mcL (140-400); Red Blood Count 4.33 M/mcL (3.82-4.97); Red Cell Distribution Width 17.4 % (11.5-14.5); White Blood Count 26.5 K/mcL (4.3-11.1)
[2020-08-12 02:58] LABS: BUN/Creatinine Ratio 14 (6-26); Blood Urea Nitrogen 10 mg/dL (8-23); Calcium 8.3 mg/dL (8.6-10.3); Carbon Dioxide 25 mEq/L (23-29); Chloride 109 mEq/L (98-107); Glucose 110 mg/dL (70-105); Osmolality,Calculated 292 (280-300); Potassium 3.5 mEq/L (3.5-5.1); Sodium 141 mEq/L (136-145); eGFR For African Americans > 60 (> 60); eGFR For Non-African Americans > 60 (> 60)
[2020-08-12 03:03] LABS: Anisocytosis 1+ (Not Present); Eosinophils # 13.3 K/mcL (0.0-0.6); Lymphocytes # 5.8 K/mcL (0.6-4.6); Monocytes # 1.1 K/mcL (0.0-1.3); Neutrophils # 6.4 K/mcL (1.6-8.9); Platelet Estimate Normal (Normal)
[2020-08-12] MEDS: Budesonide/Formoterol 160/4.5 1 PUFF INH IH SCH ×2 (07:53→20:04)
[2020-08-12] MEDS: Tiotropium 18 MCG inhalation IH SCH (07:53)
[2020-08-12] MEDS: Nicotine 21 MG PATCH.TD24 TD SCH (10:34)
[2020-08-12] MEDS: Metoprolol XL (24 HR) Succ 25 MG TAB.ER.24H PO SCH (10:35)
[2020-08-12] MEDS: Isosorbide MONOnitrate (24 HR) 60 MG TAB.ER.24H PO SCH (10:35)
[2020-08-12] MEDS: lisinopriL 10 MG TABLET PO SCH (10:36)
[2020-08-12] MEDS: Sucralfate 1 GM TABLET PO SCH ×2 (10:36→17:25)
[2020-08-12] MEDS: Loratadine 10 MG TABLET PO SCH (10:36)
[2020-08-12] MEDS: Gabapentin 100 MG CAPSULE PO SCH ×3 (10:36→20:07)
[2020-08-12] MEDS: Insulin LISPRO 300 UNITS/3 ML VIAL SQ SCH ×4 (10:37→20:09)
[2020-08-12] MEDS: (Roflumilast [Daliresp] 500 MCG) PO SCH (10:38)
[2020-08-12] MEDS: Cyanocobalamin (B-12) 1,000 MCG/ML VIAL SQ SCH (10:38)
[2020-08-12] MEDS: Aspirin Enteric Coated 81 MG Tablet PO SCH (10:40)
[2020-08-13 05:21] LABS: Hematocrit 34.4 % (35.3-44.9)
[2020-08-13 05:22] LABS: Hemoglobin 9.9 g/dL (11.5-15.4); Mean Corpuscular HGB Conc 28.8 g/dL (31.6-35.5); Mean Corpuscular Hemoglobin 22.2 pg (28.0-33.3); Mean Corpuscular Volume 77.3 fL (83.0-100.0); Mean Platelet Volume 9.7 fL (9.4-12.4); Platelet Count 316 K/mcL (140-400); Red Blood Count 4.45 M/mcL (3.82-4.97); Red Cell Distribution Width 17.5 % (11.5-14.5); White Blood Count 26.5 K/mcL (4.3-11.1)
[2020-08-13 05:36] LABS: BUN/Creatinine Ratio 19 (6-26); Blood Urea Nitrogen 15 mg/dL (8-23); Calcium 8.6 mg/dL (8.6-10.3); Carbon Dioxide 25 mEq/L (23-29); Chloride 108 mEq/L (98-107); Glucose 110 mg/dL (70-105); Osmolality,Calculated 291 (280-300); Potassium 3.2 mEq/L (3.5-5.1); Sodium 140 mEq/L (136-145); eGFR For African Americans > 60 (> 60); eGFR For Non-African Americans > 60 (> 60)
[2020-08-13 05:58] LABS: Eosinophils # 15.4 K/mcL (0.0-0.6); Lymphocytes # 2.7 K/mcL (0.6-4.6); Monocytes # 0.5 K/mcL (0.0-1.3)
[2020-08-13 05:59] LABS: Anisocytosis 1+ (Not Present); Hypochromasia Present (Not Present); Microcytosis Present (Not Present); Platelet Estimate Normal (Normal)
[2020-08-13] MEDS: Tiotropium 18 MCG inhalation IH SCH (07:55)
[2020-08-13] MEDS: Budesonide/Formoterol 160/4.5 1 PUFF INH IH SCH ×2 (07:55→21:35)
[2020-08-13] MEDS: Sucralfate 1 GM TABLET PO SCH ×2 (10:12→16:41)
[2020-08-13] MEDS: Isosorbide MONOnitrate (24 HR) 60 MG TAB.ER.24H PO SCH (10:12)
[2020-08-13] MEDS: Aspirin Enteric Coated 81 MG Tablet PO SCH (10:12)
[2020-08-13] MEDS: Metoprolol XL (24 HR) Succ 25 MG TAB.ER.24H PO SCH (10:12)
[2020-08-13] MEDS: Gabapentin 100 MG CAPSULE PO SCH ×3 (10:13→22:17)
[2020-08-13] MEDS: lisinopriL 10 MG TABLET PO SCH (10:13)
[2020-08-13] MEDS: Loratadine 10 MG TABLET PO SCH (10:13)
[2020-08-13] MEDS: Cyanocobalamin (B-12) 1,000 MCG/ML VIAL SQ SCH (10:13)
[2020-08-13] MEDS: (Roflumilast [Daliresp] 500 MCG) PO SCH (10:14)
[2020-08-13] MEDS: Nicotine 21 MG PATCH.TD24 TD SCH (10:14)
[2020-08-13] MEDS: Insulin LISPRO 300 UNITS/3 ML VIAL SQ SCH ×4 (10:22→20:03)
[2020-08-13] MEDS: Ondansetron 4 MG/2 ML VIAL IVP PRN (20:12)
[2020-08-14 02:20] LABS: Monocytes % 3.9 %
[2020-08-14 02:21] LABS: Basophils # 0.2 K/mcL (0.0-0.2); Basophils % 0.7 %; Hemoglobin 9.9 g/dL (11.5-15.4); Lymphocytes # 4.2 K/mcL (0.6-4.6); Mean Corpuscular HGB Conc 28.3 g/dL (31.6-35.5); Mean Corpuscular Hemoglobin 21.6 pg (28.0-33.3); Mean Corpuscular Volume 76.4 fL (83.0-100.0); Mean Platelet Volume 9.7 fL (9.4-12.4); Neutrophils # 9.4 K/mcL (1.6-8.9); Platelet Count 331 K/mcL (140-400); Red Blood Count 4.58 M/mcL (3.82-4.97); Red Cell Distribution Width 17.9 % (11.5-14.5); Segmented Neutrophils % 38.4 %; White Blood Count 24.5 K/mcL (4.3-11.1)
[2020-08-14 02:22] LABS: Eosinophils # 9.6 K/mcL (0.0-0.6)
[2020-08-14 02:40] LABS: Alanine Aminotransferase 7 Units/L (7-52); Albumin 3.5 g/dL (3.5-5.7); Albumin/Globulin Ratio 1.5 (1.1-2.2); Alkaline Phosphatase 72 Units/L (34-104); Aspartate Amino Transferase 13 Units/L (13-39); BUN/Creatinine Ratio 27 (6-26); Bilirubin,Total 0.2 mg/dL (0.3-1.0); Blood Urea Nitrogen 19 mg/dL (8-23); Calcium 8.8 mg/dL (8.6-10.3); Carbon Dioxide 24 mEq/L (23-29); Chloride 110 mEq/L (98-107); Globulin 2.3 g/dL (2.4-3.5); Glucose 134 mg/dL (70-105); Magnesium 1.5 mg/dL (1.6-2.6); Osmolality,Calculated 296 (280-300); Potassium 3.5 mEq/L (3.5-5.1); Sodium 141 mEq/L (136-145); Total Protein 5.8 g/dL (6.4-8.9); eGFR For African Americans > 60 (> 60); eGFR For Non-African Americans > 60 (> 60)
[2020-08-14 02:55] LABS: Hypochromasia Present (Not Present); Platelet Estimate Normal (Normal)
[2020-08-14] MEDS: Insulin LISPRO 300 UNITS/3 ML VIAL SQ SCH ×4 (07:34→20:33)
[2020-08-14] MEDS: Metoprolol XL (24 HR) Succ 25 MG TAB.ER.24H PO SCH (07:50)
[2020-08-14] MEDS: Sucralfate 1 GM TABLET PO SCH ×2 (07:50→16:55)
[2020-08-14] MEDS: Isosorbide MONOnitrate (24 HR) 60 MG TAB.ER.24H PO SCH (07:50)
[2020-08-14] MEDS: Gabapentin 100 MG CAPSULE PO SCH ×3 (07:50→20:33)
[2020-08-14] MEDS: lisinopriL 10 MG TABLET PO SCH (07:51)
[2020-08-14] MEDS: Aspirin Enteric Coated 81 MG Tablet PO SCH (07:51)
[2020-08-14] MEDS: Nicotine 21 MG PATCH.TD24 TD SCH (07:51)
[2020-08-14] MEDS: Cyanocobalamin (B-12) 1,000 MCG/ML VIAL SQ SCH (07:51)
[2020-08-14] MEDS: (Roflumilast [Daliresp] 500 MCG) PO SCH (07:51)
[2020-08-14] MEDS: Loratadine 10 MG TABLET PO SCH (07:51)
[2020-08-14] MEDS: Tiotropium 18 MCG inhalation IH SCH (07:54)
[2020-08-14] MEDS: Budesonide/Formoterol 160/4.5 1 PUFF INH IH SCH ×2 (07:55→20:09)
[2020-08-14] MEDS ORDERED: Potassium Phosphate 44 MEQ in 0.9 % Sodium Chloride 250 ML IVPB ONE (10:20)
[2020-08-14] MEDS: Ondansetron 4 MG/2 ML VIAL IVP PRN (23:12)
[2020-08-15 04:29] LABS: BUN/Creatinine Ratio 26 (6-26); Blood Urea Nitrogen 19 mg/dL (8-23); Calcium 9.3 mg/dL (8.6-10.3); Carbon Dioxide 22 mEq/L (23-29); Chloride 105 mEq/L (98-107); Glucose 128 mg/dL (70-105); Magnesium 1.5 mg/dL (1.6-2.6); Osmolality,Calculated 288 (280-300); Phosphorous 4.1 mg/dL (2.7-4.5); Potassium 3.7 mEq/L (3.5-5.1); Sodium 137 mEq/L (136-145); eGFR For African Americans > 60 (> 60); eGFR For Non-African Americans > 60 (> 60)
[2020-08-15 05:36] LABS: Red Cell Distribution Width 18.8 % (11.5-14.5)
[2020-08-15 05:37] LABS: Hematocrit 39.6 % (35.3-44.9); Hemoglobin 11.1 g/dL (11.5-15.4); Mean Corpuscular Hemoglobin 21.6 pg (28.0-33.3); Mean Corpuscular Volume 76.9 fL (83.0-100.0); Nucleated Red Blood Cells 0.1 /100 WBC (0); Platelet Count 373 K/mcL (140-400); Red Blood Count 5.15 M/mcL (3.82-4.97); White Blood Count 25.7 K/mcL (4.3-11.1)
[2020-08-15 06:41] LABS: Anisocytosis 1+ (Not Present); Eosinophils # 5.7 K/mcL (0.0-0.6); Hypochromasia Present (Not Present); Lymphocytes # 6.7 K/mcL (0.6-4.6); Monocytes # 0.5 K/mcL (0.0-1.3); Neutrophils # 12.9 K/mcL (1.6-8.9); Platelet Estimate Normal (Normal)
[2020-08-15] MEDS: Insulin LISPRO 300 UNITS/3 ML VIAL SQ SCH ×4 (08:25→19:49)
[2020-08-15] MEDS: Metoprolol XL (24 HR) Succ 25 MG TAB.ER.24H PO SCH (08:25)
[2020-08-15] MEDS: Loratadine 10 MG TABLET PO SCH (08:25)
[2020-08-15] MEDS: lisinopriL 10 MG TABLET PO SCH (08:26)
[2020-08-15] MEDS: Sucralfate 1 GM TABLET PO SCH ×2 (08:26→16:50)
[2020-08-15] MEDS: Gabapentin 100 MG CAPSULE PO SCH ×3 (08:26→19:48)
[2020-08-15] MEDS: Aspirin Enteric Coated 81 MG Tablet PO SCH (08:26)
[2020-08-15] MEDS: Cyanocobalamin (B-12) 1,000 MCG/ML VIAL SQ SCH (08:27)
[2020-08-15] MEDS: Nicotine 21 MG PATCH.TD24 TD SCH (08:27)
[2020-08-15] MEDS: Isosorbide MONOnitrate (24 HR) 60 MG TAB.ER.24H PO SCH (08:27)
[2020-08-15] MEDS: (Roflumilast [Daliresp] 500 MCG) PO SCH (08:37)
[2020-08-15] MEDS ORDERED: Magnesium Sulfate 1 GM/102 ML PIGGYBACK IVPB ONE (09:38)
[2020-08-15] MEDS: Ondansetron 4 MG/2 ML VIAL IVP PRN (10:43)
[2020-08-15] MEDS: Tiotropium 18 MCG inhalation IH SCH (11:19)
[2020-08-15] MEDS: Budesonide/Formoterol 160/4.5 1 PUFF INH IH SCH ×2 (11:20→21:57)
[2020-08-15] MEDS ORDERED: 0.9 % Sodium Chloride 1,000 ML IVC ONE (12:30)
[2020-08-15 13:52] LABS: Adenovirus Not Detected (Not Detect); Bordetella Pertussis Not Detected (Not Detect); Chlamydophila pneumoniae Not Detected (Not Detect); Coronavirus 229E Not Detected (Not Detect); Coronavirus HKU1 Not Detected (Not Detect); Coronavirus NL63 Not Detected (Not Detect); Coronavirus OC43 Not Detected (Not Detect); Human Metapneumovirus Not Detected (Not Detect); Human Rhinovirus/Enterovirus Not Detected (Not Detect); Influenza A Subtype 2009 H1 Not Detected (Not Detect); Influenza B Not Detected (Not Detect); Mycoplasma pneumoniae Not Detected (Not Detect); Parainfluenza Virus 1 Not Detected (Not Detect); Parainfluenza Virus 2 Not Detected (Not Detect); Parainfluenza Virus 3 Not Detected (Not Detect); Parainfluenza Virus 4 Not Detected (Not Detect); Respiratory Syncytial Virus Not Detected (Not Detect); SARS-CoV-2 Not Detected (Not Detect)
[2020-08-15] MEDS ORDERED: Simethicone 40 MG/0.6 ML MLS IR ONE (15:34)
[2020-08-16 02:49] LABS: Basophils % 0.6 %
[2020-08-16 02:51] LABS: Basophils # 0.1 K/mcL (0.0-0.2); Eosinophils # 3.5 K/mcL (0.0-0.6); Eosinophils % 21.4 %; Hematocrit 35.8 % (35.3-44.9); Hemoglobin 9.9 g/dL (11.5-15.4); Immature Granulocytes % 0.7 % (0-4); Lymphocytes # 3.4 K/mcL (0.6-4.6); Lymphocytes % 20.7 %; Mean Corpuscular HGB Conc 27.7 g/dL (31.6-35.5); Mean Corpuscular Hemoglobin 21.4 pg (28.0-33.3); Mean Corpuscular Volume 77.5 fL (83.0-100.0); Mean Platelet Volume 9.6 fL (9.4-12.4); Monocytes # 0.8 K/mcL (0.0-1.3); Monocytes % 5.1 %; Neutrophils # 8.3 K/mcL (1.6-8.9); Platelet Count 306 K/mcL (140-400); Red Blood Count 4.62 M/mcL (3.82-4.97); Red Cell Distribution Width 18.7 % (11.5-14.5); Segmented Neutrophils % 51.5 %; White Blood Count 16.2 K/mcL (4.3-11.1)
[2020-08-16 03:06] LABS: BUN/Creatinine Ratio 25 (6-26); Blood Urea Nitrogen 17 mg/dL (8-23); Calcium 8.5 mg/dL (8.6-10.3); Carbon Dioxide 21 mEq/L (23-29); Chloride 109 mEq/L (98-107); Glucose 98 mg/dL (70-105); Osmolality,Calculated 288 (280-300); Phosphorous 4.3 mg/dL (2.7-4.5); Potassium 3.6 mEq/L (3.5-5.1); Sodium 138 mEq/L (136-145); eGFR For African Americans > 60 (> 60); eGFR For Non-African Americans > 60 (> 60)
[2020-08-16 03:14] LABS: Anisocytosis 1+ (Not Present); Platelet Estimate Normal (Normal)
[2020-08-16 06:24] LABS: Serine Protease-3 Antibody 1 AU/mL (0-19)
[2020-08-16] MEDS: Insulin LISPRO 300 UNITS/3 ML VIAL SQ SCH ×2 (07:47→11:00)
[2020-08-16] MEDS: Aspirin Enteric Coated 81 MG Tablet PO SCH (07:54)
[2020-08-16] MEDS: Isosorbide MONOnitrate (24 HR) 60 MG TAB.ER.24H PO SCH (07:54)
[2020-08-16] MEDS: Sucralfate 1 GM TABLET PO SCH (07:54)
[2020-08-16] MEDS: Gabapentin 100 MG CAPSULE PO SCH (07:55)
[2020-08-16] MEDS: Metoprolol XL (24 HR) Succ 25 MG TAB.ER.24H PO SCH (07:55)
[2020-08-16] MEDS: Nicotine 21 MG PATCH.TD24 TD SCH (07:55)
[2020-08-16] MEDS: Loratadine 10 MG TABLET PO SCH (07:55)
[2020-08-16] MEDS: lisinopriL 10 MG TABLET PO SCH (07:55)
[2020-08-16] MEDS: Cyanocobalamin (B-12) 1,000 MCG/ML VIAL SQ SCH (07:56)
[2020-08-16] MEDS: Tiotropium 18 MCG inhalation IH SCH (09:33)
[2020-08-16] MEDS: Budesonide/Formoterol 160/4.5 1 PUFF INH IH SCH (09:34)
[2020-08-16] MEDS ORDERED: Lactobacillus 1 EACH CAP.SPRINK PO SCH (12:00)
[2020-08-16] MEDS ORDERED: FLU Vac QV 20-21 (6Month+)/PF 0.5 ML SYRINGE IM ONE (13:27)
[2020-08-16 13:33] VITALS: BP 106/67
== END 2020-08-16 14:41 | disposition home or self-care (01) | DRG 872 ==
LOC: 2ANU 12:35 → EMEROOARM 12:35 → SUATTDRO 17:25 → 2ANU 18:01
PROVIDERS: ADMIT Internal Medicine; ATTEND Internal Medicine
PROC: ENDOEBX (2020-08-15 19:10)

== ENCOUNTER 2021-02-16 08:51 | Observation (INO) ==
[2021-02-16] MEDS ORDERED: Ipratropium/Albuterol Neb 3 ML IH ONE (09:10)
[2021-02-16] MEDS ORDERED: Pantoprazole 40 MG VIAL IVP ONE (09:11)
[2021-02-16] MEDS ORDERED: methylPREDNISolone 125 MG/2 ML VIAL IVP ONE (09:11)
[2021-02-16 09:26] LABS: Basophils # 0.1 K/mcL (0.0-0.2); Basophils % 0.6 %; Eosinophils # 2.2 K/mcL (0.0-0.6); Eosinophils % 12.7 %; Hematocrit 44.7 % (35.3-44.9); Hemoglobin 13.3 g/dL (11.5-15.4); Immature Granulocytes % 0.4 % (0-4); Lymphocytes % 17.8 %; Mean Corpuscular HGB Conc 29.8 g/dL (31.6-35.5); Mean Platelet Volume 9.3 fL (9.4-12.4); Monocytes # 0.9 K/mcL (0.0-1.3); Monocytes % 5.1 %; Neutrophils # 10.8 K/mcL (1.6-8.9); Platelet Count 406 K/mcL (140-400); Red Blood Count 5.32 M/mcL (3.82-4.97); Red Cell Distribution Width 16.8 % (11.5-14.5); Segmented Neutrophils % 63.4 %
[2021-02-16 09:35] LABS: INR 1.1; Prothrombin Time 12.6 Seconds (9.4-12.1)
[2021-02-16 09:38] LABS: Activated Partial Thrombo Time 32.1 Seconds (26.0-36.0)
[2021-02-16 09:47] LABS: Large Platelets Present (Not Present); Polychromasia 1+ (Not Present); Reactive Lymphocytes Present (Not Present); Stomatocytes 1+ (Not Present)
[2021-02-16] MEDS ORDERED: Isovue-370 500 ML BOTTLE IVP ONE (09:59)
[2021-02-16 10:16] LABS: Alanine Aminotransferase 10 Units/L (7-52); Albumin 4.4 g/dL (3.5-5.7); Albumin/Globulin Ratio 1.3 (1.1-2.2); Alkaline Phosphatase 92 Units/L (34-104); Aspartate Amino Transferase 13 Units/L (13-39); BUN/Creatinine Ratio 12 (6-26); Bilirubin,Total 0.3 mg/dL (0.3-1.0); Blood Urea Nitrogen 9 mg/dL (8-23); Calcium 9.7 mg/dL (8.6-10.3); Carbon Dioxide 30 mEq/L (23-29); Chloride 100 mEq/L (98-107); Globulin 3.4 g/dL (2.4-3.5); Glucose 139 mg/dL (70-105); Osmolality,Calculated 293 (280-300); Potassium 3.9 mEq/L (3.5-5.1); Sodium 141 mEq/L (136-145); Total Protein 7.8 g/dL (6.4-8.9); Troponin I < 0.03 ng/mL (< 0.04); eGFR For African Americans > 60 (> 60); eGFR For Non-African Americans > 60 (> 60)
[2021-02-16] MEDS ORDERED: Acetaminophen 325 MG TABLET PO ONE (10:58)
[2021-02-16 11:16] LABS: Bilirubin,Urine Negative (Negative); Blood,Urine Negative (Negative); Clarity,Urine Clear (Clear); Color,Urine Light-Yellow (Yellow); Glucose,Urine (UA) Normal (Normal); Ketones,Urine Negative (Negative); Leukocyte Esterase,Urine Negative (Negative); Nitrite,Urine Negative (Negative); Protein,Urine Trace mg/dL (Neg-Trace); Specific Gravity,Urine 1.025 (1.010-1.025); Urobilinogen,Urine Normal (Normal)
[2021-02-16] MEDS ORDERED: levoFLOXacin 750 MG/150 ML 750 MG/150 ML BAG IVPB ONE (12:16)
[2021-02-16] MEDS ORDERED: Naloxone 0.4 MG/ML INJ IVP PRN (12:40)
[2021-02-16] MEDS ORDERED: Fluticasone Propionate Nasal 50 MCG/SPRAY BOTTLE NS PRN (12:41)
[2021-02-16 13:16] LABS: ABG Base Excess 4 mEq/L (-2 to 3); ABG HCO3 32 mEq/L (21-27); ABG Oxygen Saturation 96 % (95-98); ABG PCO2 61 mmHg (35-45); ABG PH 7.32 pH Units (7.32-7.45); ABG PO2 91 mmHg (85-104); ABG TCO2 33 mEq/L (20-26); Blood Gas Pressure Support 12 cm H2O
[2021-02-16] MEDS ORDERED: *HR* Dextrose 50 % in Water (Vial) 50 ML VIAL IVP PRN (13:48)
[2021-02-16] MEDS ORDERED: Dextrose Gel 15 GM/37.5 ML TUBE PO PRN ×2 (13:48)
[2021-02-16] MEDS ORDERED: D5% in Water 1,000 ML IVC PRN (13:48)
[2021-02-16 13:54] LABS: Adenovirus Not Detected (Not Detect); Bordetella Pertussis Not Detected (Not Detect); Chlamydophila pneumoniae Not Detected (Not Detect); Coronavirus 229E Not Detected (Not Detect); Coronavirus HKU1 Not Detected (Not Detect); Coronavirus NL63 Not Detected (Not Detect); Coronavirus OC43 Not Detected (Not Detect); Human Metapneumovirus Not Detected (Not Detect); Human Rhinovirus/Enterovirus Not Detected (Not Detect); Influenza A Subtype 2009 H1 Not Detected (Not Detect); Influenza B Not Detected (Not Detect); Mycoplasma pneumoniae Not Detected (Not Detect); Parainfluenza Virus 1 Not Detected (Not Detect); Parainfluenza Virus 2 Not Detected (Not Detect); Parainfluenza Virus 3 Not Detected (Not Detect); Parainfluenza Virus 4 Not Detected (Not Detect); Respiratory Syncytial Virus Not Detected (Not Detect); SARS-CoV-2 Not Detected (Not Detect)
[2021-02-16] MEDS: Gabapentin 100 MG CAPSULE PO SCH ×2 (13:55→20:24)
[2021-02-16] MEDS: Nicotine 21 MG PATCH.TD24 TD SCH (13:55)
[2021-02-16] MEDS: Doxycycline 100 MG CAPSULE PO SCH ×2 (13:55→21:58)
[2021-02-16] MEDS: Ipratropium/Albuterol Neb 3 ML IH SCH ×2 (15:45→19:22)
[2021-02-16] MEDS ORDERED: SODIUM CHLORIDE/NAHCO3/KCL/PEG 4,000 ML SOLN.RECON PO ONE (16:42)
[2021-02-16] MEDS: Insulin LISPRO 300 UNITS/3 ML VIAL SUBQ SCH ×2 (17:00→20:15)
[2021-02-16] MEDS ORDERED: Ondansetron 4 MG/2 ML VIAL IVP PRN (19:24)
[2021-02-16] MEDS: Sucralfate 1 GM TABLET PO SCH (20:24)
[2021-02-17] MEDS ORDERED: Ondansetron 4 MG/2 ML VIAL IVP SCH
[2021-02-17] MEDS: Ipratropium/Albuterol Neb 3 ML IH SCH ×7 (00:10→23:06)
[2021-02-17] MEDS ORDERED: MethylPREDNISolone 40 MG/ML VIAL IVP SCH (06:00)
[2021-02-17] MEDS: Insulin LISPRO 300 UNITS/3 ML VIAL SUBQ SCH ×4 (07:32→19:48)
[2021-02-17] MEDS: hydroCHLOROthiazide 25 MG TABLET PO SCH (08:32)
[2021-02-17] MEDS: Isosorbide MONOnitrate (24 HR) 60 MG TAB.ER.24H PO SCH (08:33)
[2021-02-17] MEDS: Metoprolol XL (24 HR) Succ 25 MG TAB.ER.24H PO SCH (08:33)
[2021-02-17] MEDS: Sucralfate 1 GM TABLET PO SCH ×2 (08:34→19:49)
[2021-02-17] MEDS: Lactobacillus 1 EACH CAP.SPRINK PO SCH (08:34)
[2021-02-17] MEDS: Loratadine 10 MG TABLET PO SCH (08:34)
[2021-02-17] MEDS: Gabapentin 100 MG CAPSULE PO SCH ×3 (08:34→19:49)
[2021-02-17] MEDS: Nicotine 21 MG PATCH.TD24 TD SCH (08:34)
[2021-02-17] MEDS: Aspirin Enteric Coated 81 MG Tablet PO SCH (08:34)
[2021-02-17] MEDS: Doxycycline 100 MG CAPSULE PO SCH ×2 (08:34→19:49)
[2021-02-17] MEDS: lisinopriL 10 MG TABLET PO SCH (08:34)
[2021-02-17] MEDS: (Roflumilast [Daliresp] 500 MCG Tablet) PO SCH (08:35)
[2021-02-17] MEDS ORDERED: Lidocaine -MPF 2% 2 ML VIAL ONE (15:19)
[2021-02-17] MEDS: predniSONE 20 MG TABLET PO SCH (17:40)
[2021-02-17] MEDS ORDERED: Preparation H Ointment 57 GM TUBE RC PRN (19:58)
[2021-02-18] MEDS: Ipratropium/Albuterol Neb 3 ML IH SCH ×3 (03:49→11:15)
[2021-02-18 07:56] VITALS: BP 124/71
[2021-02-18 08:18] LABS: Basophils % 0.2 %; Hematocrit 40.3 % (35.3-44.9); Hemoglobin 12.1 g/dL (11.5-15.4); Immature Granulocytes % 0.7 % (0-4); Lymphocytes # 2.6 K/mcL (0.6-4.6); Lymphocytes % 14.1 %; Mean Corpuscular Hemoglobin 24.5 pg (28.0-33.3); Mean Corpuscular Volume 81.7 fL (83.0-100.0); Mean Platelet Volume 9.3 fL (9.4-12.4); Monocytes # 1.1 K/mcL (0.0-1.3); Monocytes % 5.8 %; Neutrophils # 14.5 K/mcL (1.6-8.9); Platelet Count 377 K/mcL (140-400); Red Blood Count 4.93 M/mcL (3.82-4.97); Red Cell Distribution Width 16.9 % (11.5-14.5); Segmented Neutrophils % 79.2 %; White Blood Count 18.3 K/mcL (4.3-11.1)
[2021-02-18 08:19] LABS: VBG HCO3 31 mEq/L (21-27); VBG PCO2 58 mmHg (41-51); VBG PH 7.33 pH Units (7.32-7.42); VBG PO2 36 mmHg (25-50)
[2021-02-18 08:34] LABS: BUN/Creatinine Ratio 29 (6-26); Blood Urea Nitrogen 21 mg/dL (8-23); Calcium 9.3 mg/dL (8.6-10.3); Carbon Dioxide 31 mEq/L (23-29); Chloride 98 mEq/L (98-107); Glucose 119 mg/dL (70-105); Magnesium 2.1 mg/dL (1.6-2.6); Osmolality,Calculated 286 (280-300); Potassium 3.4 mEq/L (3.5-5.1); Sodium 136 mEq/L (136-145); eGFR For African Americans > 60 (> 60); eGFR For Non-African Americans > 60 (> 60)
[2021-02-18] MEDS: Aspirin Enteric Coated 81 MG Tablet PO SCH (08:56)
[2021-02-18] MEDS: Isosorbide MONOnitrate (24 HR) 60 MG TAB.ER.24H PO SCH (08:56)
[2021-02-18] MEDS: hydroCHLOROthiazide 25 MG TABLET PO SCH (08:56)
[2021-02-18] MEDS: Loratadine 10 MG TABLET PO SCH (08:56)
[2021-02-18] MEDS: Lactobacillus 1 EACH CAP.SPRINK PO SCH (08:56)
[2021-02-18] MEDS: lisinopriL 10 MG TABLET PO SCH (08:56)
[2021-02-18] MEDS: predniSONE 20 MG TABLET PO SCH (08:56)
[2021-02-18] MEDS: Metoprolol XL (24 HR) Succ 25 MG TAB.ER.24H PO SCH (08:56)
[2021-02-18] MEDS: Sucralfate 1 GM TABLET PO SCH (08:56)
[2021-02-18] MEDS: Gabapentin 100 MG CAPSULE PO SCH (08:56)
[2021-02-18] MEDS: (Roflumilast [Daliresp] 500 MCG Tablet) PO SCH (08:57)
[2021-02-18] MEDS: Insulin LISPRO 300 UNITS/3 ML VIAL SUBQ SCH (08:57)
[2021-02-18] MEDS: Doxycycline 100 MG CAPSULE PO SCH (08:57)
[2021-02-18] MEDS: Nicotine 21 MG PATCH.TD24 TD SCH (08:57)
== END 2021-02-18 11:19 | disposition home or self-care (01) ==
LOC: EMEROOARM 08:51 → 2NENU 08:51 → SUATTDRO 12:30 → 2NENU 13:43
PROVIDERS: ADMIT Internal Medicine; ATTEND Internal Medicine

== ENCOUNTER 2021-04-21 05:39 | Inpatient (IN) ==
[2021-04-21] MEDS ORDERED: methylPREDNISolone 125 MG/2 ML VIAL IVP ONE (05:45)
[2021-04-21] MEDS ORDERED: Ipratropium/Albuterol Neb 3 ML IH ONE (05:46)
[2021-04-21] MEDS ORDERED: Ondansetron 4 MG/2 ML VIAL IVP ONE (05:47)
[2021-04-21] MEDS ORDERED: Azithromycin 500 MG in 0.9 % Sodium Chloride 250 ML IVPB ONE (05:47)
[2021-04-21] MEDS ORDERED: cefTRIAXone 1,000 MG in Water for inj. (sterile) 10 ML IVP ONE (05:47)
[2021-04-21] MEDS: 0.9 % Sodium Chloride 1,000 ML IVC SCH ×3 (06:18→20:21)
[2021-04-21 06:47] LABS: Basophils # 0.1 K/mcL (0.0-0.2); Basophils % 0.4 %; Eosinophils # 0.4 K/mcL (0.0-0.6); Eosinophils % 3.3 %; Hemoglobin 11.5 g/dL (11.5-15.4); Immature Granulocytes % 1.3 % (0-4); Lymphocytes # 0.6 K/mcL (0.6-4.6); Lymphocytes % 4.4 %; Mean Corpuscular HGB Conc 29.5 g/dL (31.6-35.5); Mean Corpuscular Hemoglobin 23.6 pg (28.0-33.3); Mean Corpuscular Volume 80.1 fL (83.0-100.0); Mean Platelet Volume 9.2 fL (9.4-12.4); Monocytes # 0.8 K/mcL (0.0-1.3); Monocytes % 5.6 %; Neutrophils # 11.5 K/mcL (1.6-8.9); Platelet Count 316 K/mcL (140-400); Red Blood Count 4.87 M/mcL (3.82-4.97); Red Cell Distribution Width 16.1 % (11.5-14.5); White Blood Count 13.5 K/mcL (4.3-11.1)
[2021-04-21 07:07] LABS: BUN/Creatinine Ratio 18 (6-26); Blood Urea Nitrogen 12 mg/dL (8-23); Calcium 9.1 mg/dL (8.6-10.3); Carbon Dioxide 24 mEq/L (23-29); Chloride 102 mEq/L (98-107); Glucose 158 mg/dL (70-105); Osmolality,Calculated 287 (280-300); Potassium 3.7 mEq/L (3.5-5.1); Sodium 137 mEq/L (136-145); eGFR For African Americans > 60 (> 60); eGFR For Non-African Americans > 60 (> 60)
[2021-04-21 07:08] LABS: Troponin I < 0.03 ng/mL (< 0.04)
[2021-04-21] MEDS ORDERED: 0.9 % Sodium Chloride 1,000 ML IVC ONE (07:21)
[2021-04-21 07:56] LABS: Adenovirus Not Detected (Not Detect); Coronavirus HKU1 Not Detected (Not Detect); Coronavirus NL63 Not Detected (Not Detect); Coronavirus OC43 Not Detected (Not Detect)
[2021-04-21 07:57] LABS: Bordetella Pertussis Not Detected (Not Detect); Chlamydophila pneumoniae Not Detected (Not Detect); Coronavirus 229E DETECTED (Not Detect); Human Metapneumovirus Not Detected (Not Detect); Human Rhinovirus/Enterovirus Not Detected (Not Detect); Influenza A Subtype 2009 H1 Not Detected (Not Detect); Influenza B Not Detected (Not Detect); Mycoplasma pneumoniae Not Detected (Not Detect); Parainfluenza Virus 1 Not Detected (Not Detect); Parainfluenza Virus 2 Not Detected (Not Detect); Parainfluenza Virus 3 Not Detected (Not Detect); Parainfluenza Virus 4 Not Detected (Not Detect); Respiratory Syncytial Virus Not Detected (Not Detect); SARS-CoV-2 Not Detected (Not Detect)
[2021-04-21] MEDS ORDERED: Naloxone 0.4 MG/ML INJ IVP PRN (08:02)
[2021-04-21] MEDS ORDERED: D5% in Water 1,000 ML IVC PRN (08:02)
[2021-04-21] MEDS ORDERED: *HR* Dextrose 50 % in Water (Vial) 50 ML VIAL IVP PRN (08:02)
[2021-04-21] MEDS ORDERED: Dextrose Gel 15 GM/37.5 ML TUBE PO PRN ×2 (08:02)
[2021-04-21] MEDS ORDERED: Albuterol 2.5 MG/3 ML NEBULIZER IH PRN (08:09)
[2021-04-21 09:05] LABS: Bilirubin,Urine Negative (Negative); Blood,Urine Negative (Negative); Clarity,Urine Clear (Clear); Color,Urine Colorless (Yellow); Glucose,Urine (UA) Normal (Normal); Ketones,Urine Negative (Negative); Leukocyte Esterase,Urine Negative (Negative); Nitrite,Urine Negative (Negative); Protein,Urine Trace mg/dL (Neg-Trace); Specific Gravity,Urine 1.011 (1.010-1.025); Urobilinogen,Urine Normal (Normal)
[2021-04-21] MEDS: Ipratropium/Albuterol Neb 3 ML IH SCH ×3 (11:19→21:35)
[2021-04-21] MEDS: Insulin LISPRO 300 UNITS/3 ML VIAL SUBQ SCH ×3 (12:47→20:19)
[2021-04-21] MEDS: MethylPREDNISolone 40 MG/ML VIAL IVP SCH ×3 (12:47→23:09)
[2021-04-21] MEDS ORDERED: Nitroglycerin 0.4 MG TAB.SUBL SL PRN (16:36)
[2021-04-21] MEDS ORDERED: Fluticasone Propionate Nasal 50 MCG/SPRAY BOTTLE NS PRN (16:36)
[2021-04-21] MEDS: Gabapentin 100 MG CAPSULE PO SCH (20:19)
[2021-04-22 03:26] LABS: Hematocrit 34.4 % (35.3-44.9); Hemoglobin 10.1 g/dL (11.5-15.4); Mean Corpuscular HGB Conc 29.4 g/dL (31.6-35.5); Mean Corpuscular Hemoglobin 23.8 pg (28.0-33.3); Mean Corpuscular Volume 80.9 fL (83.0-100.0); Mean Platelet Volume 9.6 fL (9.4-12.4); Platelet Count 303 K/mcL (140-400); Red Blood Count 4.25 M/mcL (3.82-4.97); Red Cell Distribution Width 15.9 % (11.5-14.5); White Blood Count 12.3 K/mcL (4.3-11.1)
[2021-04-22] MEDS: Ipratropium/Albuterol Neb 3 ML IH SCH ×4 (03:34→22:04)
[2021-04-22 03:51] LABS: BUN/Creatinine Ratio 21 (6-26); Blood Urea Nitrogen 14 mg/dL (8-23); Calcium 8.5 mg/dL (8.6-10.3); Carbon Dioxide 24 mEq/L (23-29); Chloride 105 mEq/L (98-107); Glucose 199 mg/dL (70-105); Magnesium 1.9 mg/dL (1.6-2.6); Osmolality,Calculated 290 (280-300); Potassium 3.9 mEq/L (3.5-5.1); Sodium 137 mEq/L (136-145); eGFR For African Americans > 60 (> 60); eGFR For Non-African Americans > 60 (> 60)
[2021-04-22] MEDS: 0.9 % Sodium Chloride 1,000 ML IVC SCH (04:48)
[2021-04-22] MEDS: MethylPREDNISolone 40 MG/ML VIAL IVP SCH ×4 (06:02→23:04)
[2021-04-22] MEDS: Sucralfate 1 GM TABLET PO SCH ×2 (06:02→16:17)
[2021-04-22] MEDS: *HR* Enoxaparin 40 MG/0.4 ML SYRINGE SQ SCH (06:03)
[2021-04-22] MEDS: Insulin LISPRO 300 UNITS/3 ML VIAL SUBQ SCH ×4 (07:37→20:16)
[2021-04-22] MEDS: Gabapentin 100 MG CAPSULE PO SCH ×3 (07:38→20:16)
[2021-04-22] MEDS: Loratadine 10 MG TABLET PO SCH (07:38)
[2021-04-22] MEDS: Isosorbide MONOnitrate (24 HR) 60 MG TAB.ER.24H PO SCH (07:38)
[2021-04-22] MEDS: Metoprolol XL (24 HR) Succ 25 MG TAB.ER.24H PO SCH (07:38)
[2021-04-22] MEDS: Aspirin Enteric Coated 81 MG Tablet PO SCH (07:38)
[2021-04-22] MEDS: hydroCHLOROthiazide 25 MG TABLET PO SCH (07:38)
[2021-04-22] MEDS: lisinopriL 10 MG TABLET PO SCH (07:38)
[2021-04-22] MEDS: cefTRIAXone 1,000 MG in Water for inj. (sterile) 10 ML IVP SCH (07:38)
[2021-04-22] MEDS: Azithromycin 500 MG in 0.9 % Sodium Chloride 250 ML IVPB SCH (07:39)
[2021-04-22] MEDS ORDERED: Menthol 1 EACH LOZENGE PO PRN (09:44)
[2021-04-22] MEDS ORDERED: Budesonide/Formoterol 160/4.5 1 PUFF INH IH SCH (22:00)
[2021-04-23] MEDS: Ipratropium/Albuterol Neb 3 ML IH SCH ×5 (03:19→20:13)
[2021-04-23 04:56] LABS: Hematocrit 33.8 % (35.3-44.9)
[2021-04-23 04:58] LABS: Hemoglobin 9.9 g/dL (11.5-15.4); Mean Corpuscular HGB Conc 29.3 g/dL (31.6-35.5); Mean Corpuscular Hemoglobin 24.1 pg (28.0-33.3); Mean Corpuscular Volume 82.2 fL (83.0-100.0); Platelet Count 384 K/mcL (140-400); Red Blood Count 4.11 M/mcL (3.82-4.97); Red Cell Distribution Width 16.4 % (11.5-14.5)
[2021-04-23 05:17] LABS: BUN/Creatinine Ratio 27 (6-26); Blood Urea Nitrogen 21 mg/dL (8-23); Calcium 8.6 mg/dL (8.6-10.3); Carbon Dioxide 23 mEq/L (23-29); Chloride 101 mEq/L (98-107); Glucose 310 mg/dL (70-105); Osmolality,Calculated 295 (280-300); Potassium 3.5 mEq/L (3.5-5.1); Sodium 135 mEq/L (136-145); eGFR For African Americans > 60 (> 60); eGFR For Non-African Americans > 60 (> 60)
[2021-04-23] MEDS: MethylPREDNISolone 40 MG/ML VIAL IVP SCH ×4 (05:36→23:30)
[2021-04-23] MEDS: *HR* Enoxaparin 40 MG/0.4 ML SYRINGE SQ SCH (05:36)
[2021-04-23] MEDS: Insulin LISPRO 300 UNITS/3 ML VIAL SUBQ SCH ×4 (08:41→21:56)
[2021-04-23] MEDS: Gabapentin 100 MG CAPSULE PO SCH ×3 (08:42→21:56)
[2021-04-23] MEDS ORDERED: GuaiFENesin/Dextromethorphan TABLET PO PRN (08:42)
[2021-04-23] MEDS: Aspirin Enteric Coated 81 MG Tablet PO SCH (08:42)
[2021-04-23] MEDS: hydroCHLOROthiazide 25 MG TABLET PO SCH (08:42)
[2021-04-23] MEDS: Sucralfate 1 GM TABLET PO SCH ×2 (08:42→17:52)
[2021-04-23] MEDS: Azithromycin 500 MG in 0.9 % Sodium Chloride 250 ML IVPB SCH (08:43)
[2021-04-23] MEDS: lisinopriL 10 MG TABLET PO SCH (08:43)
[2021-04-23] MEDS: Isosorbide MONOnitrate (24 HR) 60 MG TAB.ER.24H PO SCH (08:43)
[2021-04-23] MEDS: Metoprolol XL (24 HR) Succ 25 MG TAB.ER.24H PO SCH (08:43)
[2021-04-23] MEDS: Loratadine 10 MG TABLET PO SCH (08:43)
[2021-04-23] MEDS: cefTRIAXone 1,000 MG in Water for inj. (sterile) 10 ML IVP SCH (08:44)
[2021-04-23] MEDS: Budesonide/Formoterol 160/4.5 1 PUFF INH IH SCH ×2 (09:29→20:13)
[2021-04-23 11:07] LABS: ABG Base Excess 2 mEq/L (-2 to 3); ABG HCO3 27 mEq/L (21-27); ABG Oxygen Saturation 94 % (95-98); ABG PCO2 42 mmHg (35-45); ABG PH 7.41 pH Units (7.32-7.45); ABG PO2 70 mmHg (85-104); ABG TCO2 28 mEq/L (20-26); Blood Gas Pressure Support 6 cm H2O
[2021-04-23] MEDS ORDERED: Ipratropium/Albuterol Neb 3 ML IH SCH (12:00)
[2021-04-23] MEDS: Insulin DETEMIR 100 UNIT/ML X5UNITS SUBQ SCH (21:56)
[2021-04-23] MEDS: Ondansetron 4 MG/2 ML VIAL IVP PRN (22:21)
[2021-04-24] MEDS: Ipratropium/Albuterol Neb 3 ML IH SCH ×7 (00:28→23:27)
[2021-04-24] MEDS: *HR* Enoxaparin 40 MG/0.4 ML SYRINGE SQ SCH (05:23)
[2021-04-24] MEDS: MethylPREDNISolone 40 MG/ML VIAL IVP SCH ×4 (05:24→22:34)
[2021-04-24 06:12] LABS: Hematocrit 32.8 % (35.3-44.9); Hemoglobin 9.8 g/dL (11.5-15.4); Mean Corpuscular HGB Conc 29.9 g/dL (31.6-35.5); Mean Corpuscular Volume 80.2 fL (83.0-100.0); Mean Platelet Volume 9.6 fL (9.4-12.4); Platelet Count 322 K/mcL (140-400); Red Blood Count 4.09 M/mcL (3.82-4.97); Red Cell Distribution Width 16.3 % (11.5-14.5); White Blood Count 22.7 K/mcL (4.3-11.1)
[2021-04-24 06:31] LABS: BUN/Creatinine Ratio 30 (6-26); Blood Urea Nitrogen 21 mg/dL (8-23); Calcium 8.7 mg/dL (8.6-10.3); Carbon Dioxide 32 mEq/L (23-29); Chloride 99 mEq/L (98-107); Glucose 221 mg/dL (70-105); Osmolality,Calculated 294 (280-300); Potassium 4.2 mEq/L (3.5-5.1); Sodium 137 mEq/L (136-145); eGFR For African Americans > 60 (> 60); eGFR For Non-African Americans > 60 (> 60)
[2021-04-24] MEDS: Budesonide/Formoterol 160/4.5 1 PUFF INH IH SCH ×2 (07:27→19:54)
[2021-04-24 07:36] LABS: Estimated Average Glucose 160 mg/dl; Hemoglobin A1C 7.2 %
[2021-04-24] MEDS: hydroCHLOROthiazide 25 MG TABLET PO SCH (07:56)
[2021-04-24] MEDS: Metoprolol XL (24 HR) Succ 25 MG TAB.ER.24H PO SCH (07:56)
[2021-04-24] MEDS: Sucralfate 1 GM TABLET PO SCH ×2 (07:56→17:08)
[2021-04-24] MEDS: Isosorbide MONOnitrate (24 HR) 60 MG TAB.ER.24H PO SCH (07:56)
[2021-04-24] MEDS: Loratadine 10 MG TABLET PO SCH (07:56)
[2021-04-24] MEDS: Aspirin Enteric Coated 81 MG Tablet PO SCH (07:56)
[2021-04-24] MEDS: lisinopriL 10 MG TABLET PO SCH (07:56)
[2021-04-24] MEDS: Gabapentin 100 MG CAPSULE PO SCH ×3 (07:56→19:50)
[2021-04-24] MEDS: Azithromycin 500 MG in 0.9 % Sodium Chloride 250 ML IVPB SCH (07:57)
[2021-04-24] MEDS: cefTRIAXone 1,000 MG in Water for inj. (sterile) 10 ML IVP SCH (07:57)
[2021-04-24] MEDS: Insulin LISPRO 300 UNITS/3 ML VIAL SUBQ SCH ×4 (07:58→19:49)
[2021-04-24] MEDS: Insulin DETEMIR 100 UNIT/ML X5UNITS SUBQ SCH (19:50)
[2021-04-24] MEDS: Ondansetron 4 MG/2 ML VIAL IVP PRN (22:33)
[2021-04-25] MEDS: Ipratropium/Albuterol Neb 3 ML IH SCH ×6 (03:40→23:09)
[2021-04-25] MEDS: MethylPREDNISolone 40 MG/ML VIAL IVP SCH ×2 (06:21→16:34)
[2021-04-25] MEDS: *HR* Enoxaparin 40 MG/0.4 ML SYRINGE SQ SCH (06:22)
[2021-04-25] MEDS: Budesonide/Formoterol 160/4.5 1 PUFF INH IH SCH ×2 (07:15→19:48)
[2021-04-25] MEDS: cefTRIAXone 1,000 MG in Water for inj. (sterile) 10 ML IVP SCH (07:54)
[2021-04-25] MEDS: Azithromycin 500 MG in 0.9 % Sodium Chloride 250 ML IVPB SCH (07:54)
[2021-04-25] MEDS: Insulin LISPRO 300 UNITS/3 ML VIAL SUBQ SCH ×4 (07:57→20:29)
[2021-04-25] MEDS: Acetaminophen 325 MG TABLET PO PRN ×2 (07:59→22:50)
[2021-04-25] MEDS: Sucralfate 1 GM TABLET PO SCH ×2 (08:00→16:35)
[2021-04-25] MEDS: Aspirin Enteric Coated 81 MG Tablet PO SCH (08:00)
[2021-04-25] MEDS: Metoprolol XL (24 HR) Succ 25 MG TAB.ER.24H PO SCH (08:00)
[2021-04-25] MEDS: Loratadine 10 MG TABLET PO SCH (08:00)
[2021-04-25] MEDS: lisinopriL 10 MG TABLET PO SCH (08:00)
[2021-04-25] MEDS: Gabapentin 100 MG CAPSULE PO SCH ×3 (08:00→19:54)
[2021-04-25] MEDS: Isosorbide MONOnitrate (24 HR) 60 MG TAB.ER.24H PO SCH (08:00)
[2021-04-25] MEDS: hydroCHLOROthiazide 25 MG TABLET PO SCH (08:00)
[2021-04-25] MEDS ORDERED: Insulin DETEMIR 100 UNIT/ML X5UNITS SUBQ SCH (21:00)
[2021-04-26 03:17] LABS: Basophils # 0.1 K/mcL (0.0-0.2); Basophils % 0.8 %; Hematocrit 33.6 % (35.3-44.9); Hemoglobin 9.9 g/dL (11.5-15.4); Immature Granulocytes % 5.1 % (0-4); Lymphocytes # 1.7 K/mcL (0.6-4.6); Lymphocytes % 9.3 %; Mean Corpuscular HGB Conc 29.5 g/dL (31.6-35.5); Mean Corpuscular Hemoglobin 23.9 pg (28.0-33.3); Mean Corpuscular Volume 81.2 fL (83.0-100.0); Mean Platelet Volume 10.2 fL (9.4-12.4); Monocytes # 1.2 K/mcL (0.0-1.3); Monocytes % 6.9 %; Nucleated Red Blood Cells 0.2 /100 WBC (0); Platelet Count 266 K/mcL (140-400); Red Blood Count 4.14 M/mcL (3.82-4.97); Red Cell Distribution Width 16.2 % (11.5-14.5); Segmented Neutrophils % 77.9 %; White Blood Count 17.9 K/mcL (4.3-11.1)
[2021-04-26 03:34] LABS: BUN/Creatinine Ratio 36 (6-26); Blood Urea Nitrogen 26 mg/dL (8-23); Calcium 8.1 mg/dL (8.6-10.3); Carbon Dioxide 29 mEq/L (23-29); Chloride 98 mEq/L (98-107); Glucose 268 mg/dL (70-105); Osmolality,Calculated 294 (280-300); Potassium 3.9 mEq/L (3.5-5.1); Sodium 135 mEq/L (136-145); eGFR For African Americans > 60 (> 60); eGFR For Non-African Americans > 60 (> 60)
[2021-04-26 04:07] LABS: Neutrophils # 13.9 K/mcL (1.6-8.9)
[2021-04-26] MEDS: Ipratropium/Albuterol Neb 3 ML IH SCH ×3 (04:10→11:09)
[2021-04-26 04:38] LABS: Platelet Estimate Normal (Normal); Reactive Lymphocytes Present (Not Present); Toxic Granulation Present (Not Present)
[2021-04-26] MEDS: *HR* Enoxaparin 40 MG/0.4 ML SYRINGE SQ SCH (05:34)
[2021-04-26] MEDS: MethylPREDNISolone 40 MG/ML VIAL IVP SCH (05:34)
[2021-04-26 06:31] VITALS: BP 135/81
[2021-04-26] MEDS: Budesonide/Formoterol 160/4.5 1 PUFF INH IH SCH (07:22)
[2021-04-26] MEDS: Acetaminophen 325 MG TABLET PO PRN (08:09)
[2021-04-26] MEDS: Sucralfate 1 GM TABLET PO SCH (08:09)
[2021-04-26] MEDS: Insulin LISPRO 300 UNITS/3 ML VIAL SUBQ SCH ×2 (08:10→11:13)
[2021-04-26] MEDS: hydroCHLOROthiazide 25 MG TABLET PO SCH (09:54)
[2021-04-26] MEDS: Aspirin Enteric Coated 81 MG Tablet PO SCH (09:54)
[2021-04-26] MEDS: Gabapentin 100 MG CAPSULE PO SCH (09:55)
[2021-04-26] MEDS: Isosorbide MONOnitrate (24 HR) 60 MG TAB.ER.24H PO SCH (09:55)
[2021-04-26] MEDS: Metoprolol XL (24 HR) Succ 25 MG TAB.ER.24H PO SCH (09:55)
[2021-04-26] MEDS: Loratadine 10 MG TABLET PO SCH (09:55)
[2021-04-26] MEDS: lisinopriL 10 MG TABLET PO SCH (09:55)
[2021-04-26] MEDS: cefTRIAXone 1,000 MG in Water for inj. (sterile) 10 ML IVP SCH (09:56)
[2021-04-27] MEDS ORDERED: *HR* Enoxaparin 40 MG/0.4 ML SYRINGE SQ SCH (06:00)
== END 2021-04-26 11:42 | disposition home or self-care (01) | DRG 190 ==
LOC: EMEROOARM 05:39 → 2ANU 05:39
PROVIDERS: ADMIT Internal Medicine; ATTEND Internal Medicine